=== PATIENT | male | born 1950 | race Caucasian/White ===

== ENCOUNTER 2017-09-10 17:09 | Emergency (ER) | payer BC ==
[2017-09-10] MEDS ORDERED: Lidocaine 1% w/Epinephrine 1:100K 20 ML VIAL ONE (18:27)
[2017-09-10] MEDS ORDERED: Lorazepam 2 MG/ML VIAL ONE (18:29)
[2017-09-10 18:47] LABS: #Basophils 0.1 thou/uL (0.0-0.2); #Eosinphils 0.1 thou/uL (0.0-0.7); #Lymphocytes 1.1 thou/uL (1.20-3.40); #Monocytes 0.7 thou/uL (0.11-0.59); #Neutrophils 5.3 thou/uL (1.40-6.50); %Basophils 0.7 % (0.0-1.0); %Eosinophils 0.7 % (0.0-10.0); %Lymphocytes 15.1 % (21.0-51.0); %Neutrophils 73.4 % (42.0-75.0); Mean Corpuscular Hemoglobin 33.5 pg (27.0-31.0); Mean Corpuscular Volume 95.8 fL (78.0-98.0); Mean Platelet Volume 6.9 fL (7.4-10.4); Platelet Count 158 thou/uL (130-400); RBC Distribution Width 11.4 % (11.5-14.5); Red Blood Cell (RBC) Count 4.76 mill/uL (4.70-6.10); White Blood Cell (WBC) Count 7.3 thou/uL (4.8-10.8)
[2017-09-10 19:10] LABS: CKMB 2.9 ng/mL (0-6.6); Troponin I Less than 0.010 ng/mL (< 0.028)
[2017-09-10 19:11] LABS: ALT (SGPT) 19 U/L (8-55); AST (SGOT) 21 U/L (5-34); Albumin 3.7 g/dL (3.4-4.8); Alkaline Phosphatase 67 U/L (40-150); Anion Gap 12 mmol/L (10-20); BUN (Urea Nitrogen) 17 mg/dL (8.4-25.7); Bilirubin, Total 0.6 mg/dL (0.2-1.2); CK (CPK) 133 U/L (30-200); Calc. Creatinine Clearance 0 mL/min (70-130); Calcium 8.8 mg/dL (7.8-10.44); Carbon Dioxide 24 mmol/L (23-31); Chloride 105 mmol/L (98-107); Estimated GFR-MDRD Greater than 90; Globulin 2.9 g/dL (2.4-3.5); Glucose 112 mg/dL (80-115); Potassium 4.3 mmol/L (3.5-5.1); Protein, Total 6.6 g/dL (5.8-8.1); Sodium 137 mmol/L (136-145)
== END 2017-09-10 20:25 | disposition home or self-care (01) ==
LOC: ERS 17:09
DX: S51.812A Laceration without foreign body of left forearm, initial encounter (principal); R29.898 Other symptoms and signs involving the musculoskeletal system; M10.9 Gout, unspecified; I48.91 Unspecified atrial fibrillation; I10 Essential (primary) hypertension; F17.220 Nicotine dependence, chewing tobacco, uncomplicated; Z79.899 Other long term (current) drug therapy; Z79.82 Long term (current) use of aspirin; W23.0XXA Caught, crushed, jammed, or pinched between moving objects, initial encounter
CPT/HCPCS: 12005; 36415; 82550; 82553; 84484; 96374; J2001; J2060

== ENCOUNTER 2017-09-13 15:11 | Observation (INO) | payer BC ==
[2017-09-12 10:48] VITALS: BMI 32.1
[2017-09-13] MEDS ORDERED: Ondansetron HCl/PF 4 MG/2 ML Vial ONE (16:02)
[2017-09-13] MEDS ORDERED: Lidocaine 1% PF 5 ML VIAL ONE (16:02)
[2017-09-13] MEDS ORDERED: PROPOFOL 200 MG/20 ML VIAL ONE (16:02)
[2017-09-13] MEDS ORDERED: Ketorolac Tromethamine 30 MG/ML VIAL ONE (16:02)
--- NOTE | 2017-09-13 16:12 | RAD ---
TWO VIEWS OF THE CHEST: 09/13/17 COMPARISON: 01/20/08. HISTORY: Preoperative radiograph prior to going to the operating room. FINDINGS: Two views of the chest show normal sized cardiomediastinal silhouette. There is no evidence of consol idation, mass, or pleural effusion. The bones are unremarkable. IMPRESSION: No evidence of acute cardiopulmonary disease. POS: [facility]
[2017-09-13] MEDS ORDERED: Vancomycin HCl 1.5 GM in Sodium Chloride 0.9% 250 ML 300 ML IVPB SCH (16:15)
[2017-09-13] MEDS ORDERED: CEFAZOLIN/Water 2 GM/20 ML SYRINGE SLOW IVP SCH (16:15)
[2017-09-13] MEDS ORDERED: Bacitracin Zinc Ointment 30 gm TUBE ONE (19:07)
[2017-09-13] MEDS ORDERED: Bupivacaine PF 0.5% 30 ML VIAL ONE (19:07)
[2017-09-13] MEDS ORDERED: Sodium Chloride 0.9% 30 ML ONE (19:07)
[2017-09-13] MEDS ORDERED: Fentanyl 100 MCG/2 ML VIAL ONE ×2 (19:41→20:38)
[2017-09-13] MEDS ORDERED: Sodium Chloride 0.9% 10 ML ONE (20:38)
[2017-09-13] MEDS ORDERED: Promethazine HCl 25 MG/ML VIAL SLOW IVP PRN (23:04)
[2017-09-13] MEDS ORDERED: Ondansetron HCl/PF 4 MG/2 ML Vial IVP PRN (23:04)
[2017-09-13] MEDS ORDERED: Promethazine HCl 25 MG/ML VIAL IM PRN (23:04)
[2017-09-13] MEDS ORDERED: Acetaminophen 325 MG TAB PO PRN (23:34)
[2017-09-13] MEDS ORDERED: HYDROcodone/Acetaminophen 10/325 mg Tablet PO PRN (23:34)
[2017-09-13] MEDS ORDERED: Morphine 4 MG/ML Carpuject IVP PRN (23:34)
[2017-09-13] MEDS ORDERED: traMADol HCl 50 MG TAB PO PRN (23:34)
[2017-09-13] MEDS ORDERED: Ondansetron HCl/PF 4 MG/2 ML Vial IV PRN (23:34)
[2017-09-13] MEDS ORDERED: Communication Order-Pharmacy FS SCH (23:45)
[2017-09-13] MEDS ORDERED: TETANUS AND DIPHTHERIA TOX/PF 0.5 ML DISP.SYRIN IM SCH (23:45)
[2017-09-14] MEDS: Ketorolac Tromethamine 30 MG/ML VIAL IVP SCH ×3 (00:23→11:59)
[2017-09-14] MEDS ORDERED: Vancomycin HCl 1.5 GM in Sodium Chloride 0.9% 250 ML 300 ML IVPB SCH (07:30)
[2017-09-14] MEDS ORDERED: Aspirin 81 mg Enteric Coated Tablet PO SCH (09:00)
[2017-09-14] MEDS ORDERED: Vancomycin HCl 1 GM in Premix Bag 1 BAG IVPB SCH (09:00)
[2017-09-14 11:52] VITALS: TEMP 98.4
[2017-09-14 15:26] VITALS: BP 160/90
--- NOTE | 2017-09-16 09:24 | DIS ---
DATE OF ADMISSION: 09/13/2017 DATE OF DISCHARGE: 09/14/2017 ADMISSION DIAGNOSES: Complex wound in left antecubital fossa with radial nerve laceration. FINDINGS: 1. Wound with minimal contamination. 2. Radial nerve repair just across the bifurcation from ____ posterior interosseous nerve and extens or branch. PROCEDURES WHILE IN HOSPITAL: [place] [address] [place]. 2: Microscopic radial nerve repair, mixed fascicular and epineural technique. HOSPITAL COURSE: The patient was admitted, had a clinical absence of radial nerve function with some borderline, possible brachioradialis seen. He then had wound, and inspection, I could not see the r adial nerve, though wound deep enough to see biceps tendon. For this reason, we felt radial nerve wa s injured and should be repaired. He was admitted, underwent the operation as described above to include microscopic repair of radial n erve, mixed epineural technique. Application of Integra, neural wrap to protect this. It was splinted appropriately to add plus 90 degrees elbow flexion to relax tension on the nerve, and the wo und was closed because of minimally contaminated and made into a clean environment with the debrideme nt. The patient had no fevers, and 24 hours after surgical repair for discharge without any neurologic de terioration. Vascular was intact. DISCHARGE DIAGNOSES: Complex wound in left antecubital fossa with radial nerve laceration. RECOMMENDATIONS: The patient will wear the splint, come to clinic in approximately 10 days for a lexi ssing change. He will be placed on Alborn for pain, Bactrim for antibiotics, and follow up with us at that time.
--- NOTE | 2017-09-16 10:06 | OP ---
DATE OF PROCEDURE: 09/14/2017 PREOPERATIVE DIAGNOSES: 1. Wound complex, left antecubital fossa and lateral antecubital fossa and lateral distal arm. 2. Radial nerve palsy on presentation, pulse rate of less defined. A complete radial nerve lacerati on just proximal to its terminal bifurcation at the posterior interosseous nerve and primary sensory branch with minimal gout formation. PROCEDURES PERFORMED: 1. Debridement of wound depth down to, but not including bone 0.43 depth, I used the following techn iques, A. Incisional technique. B. Instruments: Lindon blade, tenotomy scissor, curette, pickups, and Pulsavac 3 liters with antibi otics. C: We found no gross infection. We did find some muscle that was denuded especially some of the sup erior aspect cystoscope radialis brevis and longus, more superficial and some of the brachialis muscl e. There was indeed of no gross infection or hematoma. 2. Microscopic repair, radial nerve, mixed group fascicle and epineural technique. 3. Application of Integra, neural wrap. INDICATION: The patient had a laceration approximately 5-6 days prior to evaluation. Wound was irri gated and loosely closed emerging from the floor because he had complete radial nerve palsy and he jordan d pictures in the office, which showed a deep laceration, but could not see a visible radial nerves s o we felt radial nerve must not be in continuity by clinical and photographic evidence. SURGEON: Dr. Vincenzo Smiley ANESTHESIA: [place] Anesthesia, general, LMA technique, augmented by 30 mL 0.5% Marcaine, winnie-inci sional block, 15 before incision and 15 after. TOURNIQUET TIME: 220 minutes. DESCRIPTION OF PROCEDURE: After successful general LMA technique, the limb was prepped and draped. The patient then had the sterile tourniquet applied. After timeout, the limb was exsanguinated, tour niquet inflated to 250 mmHg pressure. His transverse laceration with a lateral distal was exte nded 7 cm proximal along the anterior humeral line and immediately after going through the skin and c reating a flap, we can see we had loss of muscle mass of the brachialis and next to the biceps with t he biceps tendon intact, deep to that, we could see the radial nerve. It was lacerated completely an d had already had a bulbous type hematoma on it. We then debrided some denuded muscle primarily from a longitudinal loss of extensor carpi radialis brevis and longus, did not cross the injury, did not cross into the median nerve territory and he had a normal median nerve sensory and ulnar nerve exam p rior to this procedure. The patient then had the wound irrigated after the debridement using the technique listed above with 3 liters of normal saline and Pulsavac pressure with antibiotics inside (bacitracin). We then began to dissect out the posterior interosseous nerve to free it for proximal migration and then dissected the proximal stump for distal migration, so that with the elbow at 30 degrees, the two medians overla pped. We then resected the very end of the hematoma still located under microscope after bringing th e microscope on to the field sterilely. Then, we have completed a field with a blue background, it began a mixed repair with a group fascicul ar repair primarily and the motor and sensory branch primarily with epineural only. After the fascic les were repaired then we did an epineural circumferential repair and put a neural wrap, 10 mm wide a nd 2 cm long over the repaired that was done. The neural wrap was tightly applied and was prepared b y Integra. We deflated the tourniquet, obtained hemostasis. We closed the wound in multiple layers using #1 Vicryl to repair some muscle deep, a running 3-0 Monocryl for subcutaneous closure and the s kin reapproximated with 3-0 nylon interrupted simple pattern. We injected remaining 15 mL over the T -shaped incision, the elbow was kept at 90 degrees of flexion during entire repair with no tension on the wound until we reached the last 20 degrees of extension, but we avoided this afterwards. The patient left the room with a bulky dressing inside, the limb at 100 degrees of flexion, the digit s at 20 degrees metacarpophalangeal joint flexion and 20 degrees wrist dorsiflexion with the thumb sl ightly abducted. Splint was well applied. It was a long arm splint. The patient left the operating room without evidence of anesthetic complication.
--- NOTE | 2017-09-23 10:01 | PQF ---
[facility] POST DISCHARGE CLINICAL DOCUMENTATION IMPROVEMENT CLARIFICATION FORM Todays Date: 09/20/2017 Patients Name KAYCEE BROUSSARD Admit Date 09/13/17 Disch Date 09/14/17 Kiln Operator Helper Name Randy Chiang Email: [email or web address] Cell: [phone] Present Clinical Indicators - Signs / Symptoms Results and Location in Medical Record [ ] Documentation of: [ ] [ ] Documentation of: [ ] [ ] Documentation of: [ ] [ ] Documentation of: [ ] [ ] Risks [ ] [ ] [ ] Treatment [ ] Laceration repair of lateral distal arm [ ] [ ] Vincenzo Carpio MD The documentation in this patients record requires clarification to ensure coding compliance and accuracy. Check the appropriate box and include in your discharge summary. [ ] [ ] [ ] [ ] Please check this box if this does not apply to this patient [ ] Unable to determine [ ] Other diagnosis: Review the following information and exercise your independent professional judgment in responding to the clarification. Based upon the clinical findings, risk factors, and treatment, please clarify if you are treating one of the above probable or suspected diagnoses. Physician Signature: Date Time MTDD
== END 2017-09-14 16:14 | disposition home or self-care (01) ==
LOC: SDC 15:11 → SURG A 23:34
PROVIDERS: ADMIT Orthopaedic Surgery Hand Surgery; ATTEND Orthopaedic Surgery Hand Surgery
PROC: 01Q60ZZ Repair Radial Nerve, Open Approach (ICD-10-PCS; principal; 2017-09-13)
DX: S54.22XA Injury of radial nerve at forearm level, left arm, initial encounter (principal); S51.002A Unspecified open wound of left elbow, initial encounter; S56.922A Laceration of unspecified muscles, fascia and tendons at forearm level, left arm, initial encounter; Z79.899 Other long term (current) drug therapy; Z79.82 Long term (current) use of aspirin
CPT/HCPCS: 71046; 93005; 93010; 96374; 96376; A4216; G0378; J1885; J2001; J2405; J2704; J3010; J3370; J3490; J7050; S0020

== ENCOUNTER 2018-07-10 05:51 | Inpatient (IN) | payer BC, MEDICARE ==
[2018-07-10] MEDS ORDERED: Sodium Chloride 0.9% 1,000 ML IV SCH (06:00)
[2018-07-10] MEDS ORDERED: Ondansetron PF 4 MG/2 ML Vial IVP PRN ×2 (06:00→09:20)
[2018-07-10] MEDS ORDERED: Ondansetron ODT 4 MG TAB SL PRN (06:00)
[2018-07-10 06:24] LABS: #Basophils 0.1 thou/uL (0.0-0.2); #Lymphocytes 1.7 thou/uL (1.20-3.40); #Monocytes 0.9 thou/uL (0.11-0.59); #Neutrophils 7.2 thou/uL (1.40-6.50); %Basophils 0.6 % (0.0-1.0); %Eosinophils 0.3 % (0.0-10.0); %Lymphocytes 17.1 % (21.0-51.0); %Monocytes 8.6 % (0.0-10.0); %Neutrophils 73.4 % (42.0-75.0); Hemoglobin 8.6 g/dL (14.0-18.0); Mean Corpuscular HGB CONC 33.6 g/dL (32.0-36.0); Mean Corpuscular Hemoglobin 32.5 pg (27.0-31.0); Mean Corpuscular Volume 96.5 fL (78.0-98.0); Mean Platelet Volume 7.8 fL (7.4-10.4); Platelet Count 190 thou/uL (130-400); Red Blood Cell (RBC) Count 2.64 mill/uL (4.70-6.10); White Blood Cell (WBC) Count 9.8 thou/uL (4.8-10.8)
[2018-07-10] MEDS ORDERED: Pantoprazole 40 MG VIAL ONE (06:26)
[2018-07-10 06:30] LABS: INR-International Normal Ratio 1.1; PTT 24.2 SEC (22.9-36.1); Prothrombin Time 14.4 SEC (12.0-14.7)
[2018-07-10 06:36] LABS: ALT (SGPT) 13 U/L (8-55); AST (SGOT) 15 U/L (5-34); Albumin 3.3 g/dL (3.4-4.8); Alkaline Phosphatase 48 U/L (40-150); Anion Gap 14 mmol/L (10-20); BUN (Urea Nitrogen) 20 mg/dL (8.4-25.7); Bilirubin, Total 0.5 mg/dL (0.2-1.2); Calc. Creatinine Clearance 0 mL/min (70-130); Calcium 8.2 mg/dL (7.8-10.44); Carbon Dioxide 24 mmol/L (23-31); Chloride 106 mmol/L (98-107); Estimated GFR-MDRD 65; Globulin 2.1 g/dL (2.4-3.5); Glucose 199 mg/dL (80-115); Protein, Total 5.4 g/dL (5.8-8.1); Sodium 140 mmol/L (136-145)
[2018-07-10] MEDS ORDERED: Pantoprazole 80 MG, Admixture Fee 1 EACH in Sodium Chloride 0.9% 100 ML IVPB SCH (06:45)
[2018-07-10] MEDS ORDERED: Sodium Chloride 0.65% Nasal 44 ML BOT EA NARE PRN (09:20)
[2018-07-10] MEDS ORDERED: Eucerin (Mineral Oil/Petrolatum,White) 30 gm Jar TOP PRN (09:20)
[2018-07-10] MEDS ORDERED: Artificial Tears 18 DROP/0.9 ML EA EYE PRN (09:20)
[2018-07-10 09:24] VITALS: BMI 33.8
--- NOTE | 2018-07-10 10:30 | HP ---
PRIMARY CARE PHYSICIAN: Abran Boone MD. REASON FOR ADMISSION: GI bleed, anemia due to acute blood loss, hypotension. HISTORY OF PRESENT ILLNESS: A 67-year-old male, who had colonoscopy performed [address] Dejesus and large polyp was removed and subsequently as per . Case pathology report came back as adenomatous polyp. Postprocedure, the patient was doing okay, but on Saturday evening he noticed that he was having diarrhea and when he was wiping, he was noticing some blood. Similarly on Saturday, he was having diarrhea and on wi he noticed blood and he took some Imodium and subsequently he did not have any further bleeding. Last night, the patient was having diarrhea with blood and it was black tarry stool and he was feeling dizziness, lightheadedness. He was feeling about to pass out and that is why the patient came back to emergency room for evaluation. At home, the patient's blood pressure was 80 systolic. When he came to emergency room, his blood pressure was 90 systolic and he was tachycardic. He was feeling weak, dizzy, lightheaded, and diaphoretic. He did not have any chest pain, syncope, loss of consciousness. He denies any fever, chills, or constipation. He denies any UTI symptoms. He denies any a hematemesis or epigastric abdominal pain. He denies any NSAID abuse. He never had this type of bleeding before. REVIEW OF SYSTEM: CONSTITUTIONAL: Negative for weight loss or gain, ability to conduct usual activities. SKIN: Negative for rash, itching. EYES: Negative for double vision, pain. ENT/MOUTH: Negative for nose bleeding, neck stiffness, pain, tenderness. CARDIOVASCULAR: Negative for palpitations, dyspnea on exertion, orthopnea. RESPIRATORY: Negative for shortness of breath, wheezing, cough, hemoptysis, fever or night sweats. GASTROINTESTINAL: Negative for poor appetite, abdominal pain, heartburn, nausea, vomiting, constipation, or diarrhea. GENITOURINARY: Negative for urgency, frequency, dysuria, nocturia. MUSCULOSKELETAL: Negative for pain, swelling. NEUROLOGIC/PSYCHIATRIC: Negative for anxiety, depression. ALLERGY/IMMUNOLOGIC: Negative for skin rash, bleeding tendency. Please see my HPI for pertinent positive and negative. All other review of systems reviewed and negative except as mentioned in HPI. PAST MEDICAL HISTORY: Gout, paroxysmal atrial fibrillation, hypertension, dyslipidemia, obesity, recent diagnosis of adenomatous colon polyp which was removed. PAST SURGICAL HISTORY: Cataract surgery, prostate surgery, left testicle surgery, colonoscopy with polypectomy. PAST PSYCHIATRIC HISTORY: Reviewed and negative. SOCIAL HISTORY: The patient is , lives at home with family. He drinks alcohol socially. He chews tobacco. He denies any other illicit drug abuse. FAMILY HISTORY: No family history of coronary artery disease, stroke, or cancer. ALLERGIES: NO KNOWN DRUG ALLERGIES. CURRENT HOME MEDICATIONS: 1. Lisinopril 20 mg daily. 2. Cardizem CD 240 mg p.o. daily. 3. Allopurinol 300 mg p.o. daily. 4. Aspirin 81 mg p.o. daily. 5. Pravastatin 40 mg p.o. at bedtime. EMERGENCY ROOM COURSE: The patient is given Protonix drip. The patient is getting 1 unit of blood transfusion. PHYSICAL EXAMINATION: VITAL SIGNS: On arrival, blood pressure 90/58, pulse 112, respiratory rate 18, temperature 98.9, saturation 96% on room air. Weight 119.7 kg. GENERAL: The patient is currently alert, awake, no obvious or acute distress. HEENT: Head; normocephalic and atraumatic. Eyes; pupils round, reactive to light. Extraocular muscle intact. Conjunctiva pale. ENT; oropharynx within normal limits. Moist mucous membranes. No oral lesion. No pharyngeal erythema. No exudate. NECK: Supple. No JVD. No thyromegaly. No carotid bruit. No jugular venous distention. LUNGS: Clear to auscultation without any rhonchi or rales. CARDIAC: S1 and S2 regular. No systolic murmur noted. No gallop. No rub. ABDOMEN: Obesity present. Bowel sounds present. Nontender. Nondistended. No organomegaly. No mass. No suprapubic tenderness. BACK: Unremarkable. No CVA tenderness. Upper extremities, passive movement of all joints are normal. RECTAL: Done in the emergency room showing blood in the rectal vault. NEUROLOGIC: Nonfocal examination. He moves all 4 limbs. SKIN: No skin or rash. HEMATOLOGICAL: No lymphadenopathy. PSYCHIATRIC: Normal affect. SIGNIFICANT LABORATORY DATA: CBC; WBC 9.8, hemoglobin 8.6, platelet 190. INR 1.1. BMP; sodium 140, potassium 4.0, chloride 106, carbon dioxide 24, BUN 20, creatinine 1.13, glucose 199, calcium 8.2, lactic acid 5.4. LFT; AST 15, ALT 13, alkaline phosphatase 48, albumin 3.3. Colon biopsy report came back as a tubular adenoma. ASSESSMENT/PLAN: 1. Acute gastrointestinal bleed. 2. Anemia due to acute blood loss. 3. Hypotension due to GI bleed. 4. Lactic acidosis due to hypotension. 5. Paroxysmal atrial fibrillation. 6. Hypertension, but currently low blood pressure. 7. Gout. 8. Dyslipidemia. PLAN: The patient will be admitted to ICU for close monitoring. Mathematics Faculty Member will be consulted for further evaluation. Pulmonary and Critical Care group will be consulted for critical care illness. The patient will continue with IV fluid. We will transfuse with blood to keep hemoglobin around 8. We will monitor vitals closely. We will also continue Protonix drip. Further decision will defer to ed teacher team. I am suspecting that this patient might have post polypectomy ulcer and bleeding from that area, but other etiology needs to be excluded. We will try to do nuclear medicine scan to localize the site of bleeding and based on that result will decide the next step. We will keep him n.p.o. for now. We will restart his home medication when hemodynamics improves. DVT prophylaxis, SCD boots. GI prophylaxis, the patient is on Protonix drip. CODE STATUS: The patient is full code. The patient's is surrogate decision maker. DISPOSITION PLAN: Based on clinical course. We are expecting the patient's stay in hospital more than 2 midnights. Plan of care discussed with the patient and family member at bedside. Job ID: [id number]
--- NOTE | 2018-07-10 12:32 | CON ---
DATE OF CONSULTATION: 07/10/2018 REASON FOR CONSULTATION: GI bleeding. HISTORY OF PRESENT ILLNESS: Fam Soler is a 67-year-old man, patient of my GI colleague, Dr. Curt Dejesus. Mr. Soler has no chronic gastrointestinal symptoms. He recently saw Dr. Dejesus for surveillance colonoscopy on 07/04/2018, due to a personal history of colon polyps. The colonoscopy demonstrated diverticulosis throughout the colon, internal hemorrhoids, and also a large flat adenoma in the cecum, which measured 4 cm. This was too large to be endoscopically resected. Dr. Dejesus did obtain biopsies. The biopsies came back as fragments of tubular adenoma. The patient had been referred to a surgeon and was scheduled to see Dr. Weathers. However, over the past 6 days since that time, the patient states that he has had new blood in his stool. This started out fairly slowly, but has gotten progressively worse over the past few days. He describes his stool as dark and tarry with red blood smears on the sides. This is all new for him just since the colonoscopy. He does not have any abdominal pain at all, but he had been getting progressively dizzy and lightheaded. Upon ER presentation early this morning, he was found to be relatively hypotensive with systolic blood pressures in the 90s and initially tachycardic up to 120. Lactic acid was elevated to 5.4 and hemoglobin was 8.6, down from baseline of 13 last year. He is now getting 2 units of RBC transfusion. He is hemodynamically stable. Tachycardia has improved. He is no longer feeling as lightheaded. He has no other symptoms. His last bowel movement was this morning and again appeared jet black with reddish smears. REVIEW OF SYSTEMS: Full review of systems including constitutional; head, eyes, ears, nose, and throat; GI; ; cardiovascular; respiratory; musculoskeletal; and neurologic systems are negative except as noted in the HPI. PAST MEDICAL HISTORY: Gout; atrial fibrillation; hypertension; prostate cancer, status post prostatectomy; history of colon polyps in 2012; large cecal adenoma biopsied on colonoscopy on 07/04/2018; colonic diverticulosis; and internal hemorrhoids. FAMILY HISTORY: Noncontributory. SOCIAL HISTORY: The patient chews tobacco. He drinks beer every day up to 10 drinks in a day. No drug use. ALLERGIES: NO KNOWN DRUG ALLERGIES. OUTPATIENT MEDICATIONS: 1. Lisinopril. 2. Diltiazem. 3. Allopurinol. 4. Pravastatin. 5. Aspirin 81 mg daily. PHYSICAL EXAMINATION: VITAL SIGNS: Temperature 99.1, pulse 103, blood pressure 109/61, oxygen saturation 99% on room air. GENERAL: A 67-year-old man, lying in bed comfortably, in no acute distress. SKIN: He is pale. No jaundice. No rashes were palpable. EYES: No scleral icterus. Extraocular movements intact. ENT: Mucous membranes are moist. No oral lesions. LYMPH: No submandibular or supraclavicular lymphadenopathy. THYROID: Nontender to palpation. HEART: Regular rate and rhythm, with borderline tachycardia. LUNGS: Clear to auscultation bilaterally. ABDOMEN: Bowel sounds present. Soft and nontender to palpation throughout. EXTREMITIES: No peripheral edema. VESSELS: Radial pulses 2+ bilaterally. NEURO: Cranial nerves II through XII intact bilaterally. No focal deficits. LABORATORY STUDIES: Hemoglobin 8.6, MCV 96.5, WBC 9.8, and platelets 190. BUN 20, creatinine 1.13, and glucose 199. Lactic acid 5.4. Total bilirubin 0.5, alkaline phosphatase 48, AST 15, ALT 13, and albumin 3.3. INR 1.1. ASSESSMENT: 1. Gastrointestinal bleeding, acute over the past 6 days since colonoscopy. 2. Acute blood loss anemia. 3. Large cecal adenoma, recently biopsied on 07/04/2018. PLAN: The patient was having no bleeding prior to colonoscopy 6 days ago. He did not have polypectomy of this large cecal polyp, but rather just biopsies. It is a bit unusual to bleed so much just from biopsy sites, but this is almost certainly the etiology of his current bleeding. Presentation is not really consistent with upper gastrointestinal bleed. I suppose this could represent new diverticular bleeding, but this would be highly coincidental. The patient had already been scheduled to see Dr. Weathers on an outpatient basis for surgical evaluation for resection of this cecal polyp. Given this acute presentation, I think he should go ahead and have surgical evaluation while here. In the meantime, we will go ahead and obtain a tagged RBC scan to try to localize the bleeding and confirm bleeding from the location of the cecum. No plan for any endoscopy at this time, unless requested by Surgical Team. Otherwise, I agree with blood transfusion and supportive care. Thank you for the consultation. GI will follow along. Please call anytime with questions or concerns. Job ID: [id number]
--- NOTE | 2018-07-10 12:37 | NM ---
Exam: Chest one view HISTORY:Emergency exam, hyperglycemia, dizziness Comparison: 01/25/2015 FINDINGS: Lungs: Mild interstitial prominence, perihilar regions, bilaterally Cardiac silhouette: Normal size Pulmonary vessels: Mild central prominence Pleural Spaces: No significant effusion Pneumothorax: None Metallic clips overlie the right chest. Osseous abnormalities: None of acuity. IMPRESSION: Bilateral perihilar interstitial prominence with mild enlargement of central pulmonary va sculature. This may represent fluid overload. Correlate clinically.
[2018-07-10 13:26] LABS: Base Excess (BEa) -3.4 mEq/L (-2.0 to +3.0); CO2 Tension 30.3 mmHg (35.0-45.0); Calcium, Ionized 1.08 mmol/L (1.12-1.30); Carboxyhemoglobin (COHb) 0.9 gm% (0.0-3.0); Hemoglobin (Hb) 9.9 g/dL (14.0-18.0); O2 Tension (PaO2) 69.7 mmHg (> 80.0); Potassium - ABG Lab 3.74 mmol/L (3.70-5.30); Puncture Site RR; pH, Arterial 7.44 (7.35-7.45)
[2018-07-10 13:27] LABS: ALV-art Gradient 42.155 (0-20)
--- NOTE | 2018-07-10 13:32 | NM ---
NUCLEAR MEDICINE BLEEDING SCAN: CLINICAL HISTORY: Recent cecal colonic polyp resection with GI bleeding. RADIOPHARMACEUTICAL: 27.1 mCi tagged RBCs (technetium-99m). FINDINGS: There is appropriate physiologic distribution of radiotracer. There is no definitive evidence for abn ormal scintigraphic activity localizing to the confines of the cecum or the right hemicolon. At appro ximately 37 minutes of imaging, there is activity which localizes over the low midline pelvis and ext ends to the left of midline, which favors activity within the urinary bladder. This does not localize to the expected confines of the cecum, and therefore this is not favored to reflect activity within the colon. IMPRESSION: 1. No definite scintigraphic evidence of active GI bleed. 2. There is activity, delayed, which overlies the low midline pelvis and does not conform to the exp ected confines of bowel content, favoring activity within excreted radiopharmaceutical within the uri nary bladder. If there are persistent clinical concerns, or evidence of active rebleeding, follow-up imaging may be obtained as necessary. These findings were conveyed to ICU physician, Honorio Dorman, at time of interpretation. CODE CR. POS: [facility]
[2018-07-10] MEDS: Sodium Chloride 0.9% 1,000 ML IV SCH (13:34)
[2018-07-10 13:56] LABS: Hemoglobin 9.4 g/dL (14.0-18.0)
[2018-07-10 14:03] LABS: Lactic Acid 2.7 mmol/L (0.5-2.2)
[2018-07-10 17:59] LABS: Hemoglobin 8.8 g/dL (14.0-18.0)
[2018-07-10] MEDS ORDERED: GoLYTELY 4,000 ml Bottle PO SCH (18:00)
[2018-07-10] MEDS: Pantoprazole 80 MG in Sodium Chloride 0.9% 100 ML IVP SCH (18:34)
--- NOTE | 2018-07-10 18:39 | CON ---
DATE OF CONSULTATION: 07/10/2018 CHIEF COMPLAINT: Lower GI bleed. HISTORY OF PRESENT ILLNESS: This is a 67-year-old male, who presents after having had a right large sessile polyp, biopsied a week ago on Saturday by Dr. Dejesus. He has had bloody stools since then, became more frequent and larger in the last 24 hours, admitted to the ICU with a lower GI bleed. He has been hemodynamically stable. His hemoglobin was 8.6 this morning. He was given 2 units of blood. He remains hemodynamically stable. He was also noted to have diffuse diverticulosis on the colonoscopy. I have been asked to see him for potential surgical management of this bleeding and he will ultimately need elective right colectomy for this unresectable polyp. He denies abdominal pain. He has had a couple of small bloody bowel movements today. PAST MEDICAL HISTORY: Includes paroxysmal atrial fibrillation, gout, hypertension, dyslipidemia, and obesity. SURGICAL HISTORY: Cataract; prostatectomy, robotic; colonoscopy. SOCIAL HISTORY: , lives at home. He drinks socially. Chews tobacco. No smoking. ALLERGIES: NO KNOWN DRUG ALLERGIES. FAMILY HISTORY: No family history of GI malignancy or anesthetic related complication. MEDICATIONS: 1. Lisinopril. 2. Cardizem. 3. Allopurinol. 4. Aspirin. 5. Pravastatin. REVIEW OF SYSTEMS: A 10-system review of systems was otherwise negative unless described above. PHYSICAL EXAMINATION: VITAL SIGNS: His pulse is 86. His blood pressure is 128/69, respirations 15, and O2 saturations 99% on room air. NECK: No lymphadenopathy. CHEST: Clear. HEART: Regular rate and rhythm. ABDOMEN: Soft, nontender, nondistended. He has well-healed laparoscopic incisions without hernia. No inguinal hernias. EXTREMITIES: No ischemia or edema to extremities. LABORATORY DATA: Hemoglobin was 8.6 this morning, 9.4 this afternoon, and 8.8 this afternoon. He had 2 units of blood today. His platelet count is 190. His coags are normal. ASSESSMENT: 1. Unresectable adenoma in right colon, status post biopsy, ultimately needs definitive resection. 2. Lower gastrointestinal bleed, slow but persistent. Hemodynamically stable. Already had 2 units of blood. GI nuclear bleeding scan is negative. PLAN: Discussed with Dr. Lambert. Most likely, he is bleeding from his polypectomy site; however, with the presence of diffuse diverticulosis, he could have a diverticular bleed as well. Given that he is hemodynamically stable, may attempt to prep and do upper and lower endoscopy just to rule out other sources of bleeding prior to his elective colon resection. We will follow with you. Job ID: [id number]
[2018-07-10 21:37] LABS: Hemoglobin 8.8 g/dL (14.0-18.0)
[2018-07-11 01:14] LABS: Hemoglobin 7.7 g/dL (14.0-18.0)
[2018-07-11] MEDS: Sodium Chloride 0.9% 1,000 ML IV SCH ×3 (01:21→21:19)
[2018-07-11] MEDS: Pantoprazole 80 MG in Sodium Chloride 0.9% 100 ML IVP SCH ×2 (01:21→12:51)
[2018-07-11 05:21] LABS: #Basophils 0.1 thou/uL (0.0-0.2); #Eosinphils 0.1 thou/uL (0.0-0.7); #Lymphocytes 1.6 thou/uL (1.20-3.40); #Monocytes 0.8 thou/uL (0.11-0.59); #Neutrophils 4.4 thou/uL (1.40-6.50); %Basophils 0.9 % (0.0-1.0); %Eosinophils 0.8 % (0.0-10.0); %Lymphocytes 23.5 % (21.0-51.0); %Monocytes 11.2 % (0.0-10.0); %Neutrophils 63.7 % (42.0-75.0); Hemoglobin 7.3 g/dL (14.0-18.0); Mean Corpuscular HGB CONC 34.4 g/dL (32.0-36.0); Mean Corpuscular Hemoglobin 32.9 pg (27.0-31.0); Mean Corpuscular Volume 95.5 fL (78.0-98.0); Platelet Count 133 thou/uL (130-400); RBC Distribution Width 12.7 % (11.5-14.5); Red Blood Cell (RBC) Count 2.23 mill/uL (4.70-6.10)
[2018-07-11 05:34] LABS: ALT (SGPT) 11 U/L (8-55); AST (SGOT) 16 U/L (5-34); Albumin 2.8 g/dL (3.4-4.8); Alkaline Phosphatase 41 U/L (40-150); Anion Gap 9 mmol/L (10-20); BUN (Urea Nitrogen) 19 mg/dL (8.4-25.7); Bilirubin, Total 0.6 mg/dL (0.2-1.2); Calc. Creatinine Clearance 130 mL/min (70-130); Calcium 7.3 mg/dL (7.8-10.44); Carbon Dioxide 28 mmol/L (23-31); Chloride 107 mmol/L (98-107); Estimated GFR-MDRD 83; Globulin 1.8 g/dL (2.4-3.5); Glucose 133 mg/dL (80-115); Potassium 3.4 mmol/L (3.5-5.1); Protein, Total 4.6 g/dL (5.8-8.1); Sodium 141 mmol/L (136-145)
[2018-07-11] MEDS ORDERED: Diabetic Tussin 200 MG/10 ML UDCUP PO PRN (09:19)
[2018-07-11] MEDS ORDERED: Loperamide HCl 2 MG CAP PO PRN (09:19)
[2018-07-11] MEDS ORDERED: HYDROcodone/Acetaminophen 5/325 mg Tablet PO PRN (09:19)
[2018-07-11] MEDS ORDERED: hydrALAZINE 20 MG/ML VIAL SLOW IVP PRN (09:19)
[2018-07-11] MEDS ORDERED: Cepastat Lozenges 1 LOZ PO PRN (09:19)
[2018-07-11] MEDS ORDERED: Calcium Carbonate 500 MG ChewTAB PO PRN (09:19)
[2018-07-11] MEDS ORDERED: Bisacodyl 10 MG SUPP PR PRN (09:19)
[2018-07-11] MEDS ORDERED: Ondansetron ODT 4 MG TAB PO PRN (09:19)
[2018-07-11] MEDS ORDERED: Acetaminophen 500 MG TAB PO PRN (09:19)
[2018-07-11] MEDS ORDERED: Zolpidem Tartrate 5 MG TAB PO PRN (09:19)
[2018-07-11] MEDS ORDERED: Senokot S 8.6-50 MG TAB PO PRN (09:19)
[2018-07-11 10:10] LABS: Iron Binding Capacity, Total 234 mcg/dL (261-462)
[2018-07-11 10:11] LABS: Iron 40 ug/dL (65-175)
--- NOTE | 2018-07-11 10:23 | PDOC.PN ---
- Subjective Encounter Start Date: 07/11/18 Encounter Start Time: 10:10 Patient seen and examined. No new complaints. No overnight events - Objective Resuscitation Status - Order Detail: 07/10/18 07:14 Resuscitation Status Routine Resuscitation Status: FULL: Full Resuscitation MAR Reviewed: Yes Vital Signs & Weight: Vital Signs (12 hours) Temp Pulse Ox 07/11/18 08:00 98 07/11/18 07:00 98.1 F 07/11/18 04:00 97.8 F 07/11/18 00:00 98.0 F Weight Weight 256 lb 6.362 oz Most Recent Monitor Data Heart Rate from ECG 76 NIBP 142/65 NIBP BP-Mean 77 Respiration from ECG 21 SpO2 98 I&O: 07/10/18 07/11/18 07/12/18 06:59 06:59 06:59 Intake Total 6198 0 Output Total 11 2 Balance 6187 -2 Result Diagrams: 07/11/18 04:36 07/11/18 04:36 EKG Reviewed by me: Yes (nsr) Phys Exam - Physical Examination Constitutional: NAD HEENT: PERRLA, moist MMs, sclera anicteric, oral pharynx no lesions Neck: no JVD, supple Respiratory: no wheezing, no rales, no rhonchi Cardiovascular: RRR, no significant murmur, no rub Gastrointestinal: soft, non-tender, no distention, positive bowel sounds Musculoskeletal: no edema, pulses present Neurological: non-focal, normal sensation Lymphatic: no nodes Psychiatric: normal affect, A&O x 3 Skin: no rash, normal turgor Dx/Plan (1) Adenomatous colon polyp Code(s): D12.6 - BENIGN NEOPLASM OF COLON, UNSPECIFIED Status: Acute (2) Anemia due to acute blood loss Code(s): D62 - ACUTE POSTHEMORRHAGIC ANEMIA Status: Acute (3) GI bleed Code(s): K92.2 - GASTROINTESTINAL HEMORRHAGE, UNSPECIFIED Status: Acute (4) Hypokalemia Code(s): E87.6 - HYPOKALEMIA Status: Acute (5) Hypotension Status: Acute (6) Dyslipidemia Code(s): E78.5 - HYPERLIPIDEMIA, UNSPECIFIED Status: Chronic (7) Hypertension Code(s): I10 - ESSENTIAL (PRIMARY) HYPERTENSION Status: Chronic (8) Obesity (BMI 30.0-34.9) Code(s): E66.9 - OBESITY, UNSPECIFIED Status: Chronic - Plan cont current plan of care, plan discussed w/ family * medication reviewed as below * symptomatic treatment * transfer to medical * continue protonix * today EGD * surgery on Saturday. Review of Systems - Review of Systems ENT: negative: Ear Pain, Ear Discharge, Nose Pain, Nose Discharge, Nose Congestion, Mouth Pain, Mouth Swelling, Throat Pain, Throat Swelling, Other Respiratory: negative: Cough, Dry, Shortness of Breath, Hemoptysis, SOB with Excertion, Pleuritic Pain, Sputum, Wheezing Cardiovascular: negative: chest pain, palpitations, orthopnea, paroxysmal nocturnal dyspnea, edema, light headedness, other Gastrointestinal: negative: Nausea, Vomiting, Abdominal Pain, Diarrhea, Constipation, Melena, Hematochezia, Other Genitourinary: negative: Dysuria, Frequency, Incontinence, Hematuria, Retention , Other Musculoskeletal: negative: Neck Pain, Shoulder Pain, Arm Pain, Back Pain, Hand Pain, Leg Pain, Foot Pain, Other Skin: negative: Rash, Lesions, Kay[place], Bruising, Other - Medications/Allergies Allergies/Adverse Reactions: Allergies Allergy/AdvReac Type Severity Reaction Status Date / Time No Known Allergies Allergy Verified 09/14/17 00:34 Medications: Current Medications Acetaminophen (Tylenol) 650 mg PO Q6H PRN PRN Reason: Mild Pain (1-3) Hydrocodone Bitart/Acetaminophen ([place] 5/325) 1 tab PO Q4H PRN PRN Reason: Moderate Pain (4-6) Allopurinol (Zyloprim) 300 mg PO QAM ELLEN Artificial Tears (Tears Naturale) 2 drop EA EYE PRN PRN PRN Reason: Dry Eyes Atorvastatin Calcium (Lipitor) 10 mg PO HS ELLEN Bisacodyl (Dulcolax) 10 mg NM DAILYPRN PRN PRN Reason: Constipation Calcium Carbonate (Tums) 1,000 mg PO Q4H PRN PRN Reason: Heartburn or Indigestion Diltiazem HCl (Cardizem Cd) 240 mg PO QAM ELLEN Guaifenesin (Robitussin Sf) 200 mg PO Q4H PRN PRN Reason: Cough Hydralazine HCl (Apresoline) 10 mg SLOW IVP Q4H PRN PRN Reason: SBP > 180 and HR < 70 Pantoprazole Sodium 80 mg/ (Sodium Chloride) 100 mls @ 10 mls/hr IVP INF [facility] Last Admin: 07/11/18 01:21 Dose: 100 mls Sodium Chloride (Normal Saline 0.9%) 1,000 mls @ 75 mls/hr IV .[id number] [facility] Last Admin: 07/11/18 01:21 Dose: 1,000 mls Lisinopril (Zestril) 20 mg PO QAM [facility] Loperamide HCl (Imodium) 2 mg PO PRN PRN PRN Reason: Diarrhea/Loose Stools Mineral Oil/White Petrolatum (Eucerin Cream) 0 gm TOP BIDPRN PRN PRN Reason: Dry Skin Ondansetron HCl (Zofran) 4 mg IVP Q6H PRN PRN Reason: Nausea/Vomiting Ondansetron HCl (Zofran Odt) 4 mg PO Q6H PRN PRN Reason: Nausea/Vomiting Senna/Docusate Sodium (Senokot S) 2 tab PO BID PRN PRN Reason: Constipation Sodium Chloride (Flush - Normal Saline) 10 ml IVF PRN PRN PRN Reason: Saline Flush Sodium Chloride ([place] Nasal [place] 0.65%) 0 ml EA NARE QIDPRN PRN PRN Reason: Nasal Congestion Throat Lozenges (Cepastat Lozenges) 1 ngoc PO Q2H PRN PRN Reason: Sore Throat Zolpidem Tartrate (Ambien) 5 mg PO HSPRN PRN PRN Reason: Insomnia
--- NOTE | 2018-07-11 10:43 | PRG ---
DATE OF SERVICE: 07/11/2018 SUBJECTIVE: Mr. Soler remains in the CCU, but is planning to go up to a regular room once his colonoscopy is completed today. OBJECTIVE: VITAL SIGNS: Temperature 98.1, pulse 76, and blood pressure 142/65. He is currently on a Protonix drip. HEENT: Unremarkable. NECK: No JVD. CHEST: Clear. CARDIAC: S1 and S2. Regular without murmur. ABDOMEN: Soft and nontender. EXTREMITIES: No edema. LABORATORY DATA: Sodium 141, potassium 3.4, chloride 107, CO2 of 28, BUN 19, creatinine 0.9, and glucose 133. White blood cell count 7, hematocrit 21.3, and platelet count 133. ASSESSMENT: 1. Lower gastrointestinal bleeding with stable H and H. 2. Stable cardiopulmonary status. PLAN: The patient is being transferred out to the floor. He is doing well from pulmonary and critical care standpoint. We have no further recommendations. Please re-call if further assistance needed. Job ID: [id number]
[2018-07-11] MEDS ORDERED: PROPOFOL 200 MG/20 ML VIAL ONE (16:28)
[2018-07-11] MEDS ORDERED: Ketamine 50 MG/ML (10ML VIAL) ONE (16:56)
[2018-07-11] MEDS ORDERED: Ondansetron HCl/PF 4 MG/2 ML Vial IVP PRN (18:14)
[2018-07-11] MEDS ORDERED: Promethazine HCl 25 MG/ML VIAL SLOW IVP PRN (18:14)
[2018-07-11] MEDS ORDERED: Promethazine HCl 25 MG/ML VIAL IM PRN (18:14)
--- NOTE | 2018-07-11 19:06 | OP ---
DATE OF PROCEDURE: 07/11/2018 BILLING SUPERVISOR SURGEON: None. PROCEDURES: 1. Esophagogastroduodenoscopy, diagnostic. 2. Colonoscopy, diagnostic. INDICATIONS: 1. Gastrointestinal bleeding. 2. Acute blood loss anemia. MEDICATIONS: See Anesthesia record. FINDINGS: After discussion of the risks, benefits, and alternatives of the procedure, informed consent was obtained and witnessed. Pre-endoscopic cardiopulmonary examination was satisfactory. Time-out was performed before sedation was achieved. Sedation was achieved with Anesthesia assistance in the endoscopy unit. A Pentax adult upper endoscope was placed into the oropharynx and passed through the cricopharyngeus under direct visualization. The esophageal mucosa appeared normal throughout with a normal-appearing Z-line. The endoscope was advanced into the stomach. Forward and retroflexed views of the entire gastric mucosa were obtained. The gastric mucosa appeared normal. The endoscope was advanced beyond the pylorus and into the duodenal bulb. The patient has a J-shaped stomach with extensive looping of the upper endoscope within the stomach, and the endoscope was unable to be advanced beyond the duodenal bulb. The duodenal bulb appeared normal, but I was unable to examine the second portion of the duodenum. The upper endoscope was completely withdrawn, and the patient was repositioned. Digital rectal exam was performed, which was unremarkable. A Pentax adult colonoscope was inserted into the anus and passed forward in the usual fashion. The patient has a very redundant colon. There was extensive looping of the scope. Despite the patient's repositioning and manual pressure, I was unable to get to the cecal base. I was able to visualize the vast majority of the colon including the ascending colon just beyond the hepatic flexure, but the cecal base was not reached. The colonoscope was slowly withdrawn in a gradual and circumferential manner with careful examination of the colonic mucosa. The quality of the prep was good. There was no evidence of any old blood or active bleeding throughout the colon. The patient does have diverticula throughout the colon. There were no polyps or other abnormalities were visualized. Retroflexion in the rectum was unremarkable. The colonoscope was completely withdrawn, and the patient allowed to recover. The patient tolerated the procedure well. There were no immediate postprocedure complications. IMPRESSION: 1. Normal esophagogastroduodenoscopy. 2. Redundant colon with extensive looping, unable to examine the cecal base, but able to examine to the ascending colon. 3. Diverticulosis throughout the whole colon. 4. No evidence of any old blood or active bleeding. RECOMMENDATIONS: 1. We will put him on a full liquid diet tonight. 2. Trend H and H. 3. Surgery is planned for Saturday. Dr. Martinez is covering for GI this . Job ID: [id number]
--- NOTE | 2018-07-11 19:29 | PDOC.GSPN ---
Surgery Progress Note: Subj - Subjective Patient reports: no new complaints, tolerating liquids well (No more bloody stools) Surgery Progress Note: Obj - Vital signs Vital signs: Vital Signs - Most Recent Temp Pulse Resp BP Pulse Ox 98.4 F 77 16 164/73 H 95 07/11/18 10:50 07/11/18 10:50 07/11/18 10:50 07/11/18 10:50 07/11/18 18:58 - Physical Exam General: no distress Abdomen: soft, nondistended Surgery Progress Note: Results - Labs Result Diagrams: 07/11/18 04:36 07/11/18 04:36 Lab results: Laboratory Results - last 24 hr 07/10/18 07/11/18 06:12 04:36 Iron 40 L TIBC 234 L Ferritin 289.70 Surgery Progress Note: A/P - Problem (1) Adenomatous colon polyp Current Visit: Yes Code(s): D12.6 - BENIGN NEOPLASM OF COLON, UNSPECIFIED Status: Acute (2) Anemia due to acute blood loss Current Visit: Yes Code(s): D62 - ACUTE POSTHEMORRHAGIC ANEMIA Status: Acute - Plan Plan: Colonoscopy showed no active bleeding. -Plan right colectomy Saturday -Dr. Eden covering for me this weekend. Please keep on a liquid diet
[2018-07-11] MEDS: Atorvastatin Calcium 10 MG TAB PO SCH (21:18)
[2018-07-12] MEDS: Pantoprazole 80 MG in Sodium Chloride 0.9% 100 ML IVP SCH ×2 (04:22→16:58)
[2018-07-12] MEDS: Lisinopril 20 MG TAB PO SCH (07:35)
[2018-07-12] MEDS: Allopurinol 300 MG TAB PO SCH (07:35)
[2018-07-12] MEDS ORDERED: Pravastatin Sodium 40 MG TAB PO SCH (09:00)
[2018-07-12] MEDS ORDERED: DILTIAZEM HCL 240 MG PO SCH (09:00)
[2018-07-12] MEDS: Sodium Chloride 0.9% 1,000 ML IV SCH ×2 (10:58→23:40)
--- NOTE | 2018-07-12 13:10 | PDOC.PN ---
- Subjective Encounter Start Date: 07/12/18 Encounter Start Time: 13:09 Patient seen and examined, no new issues or complaints, all questions answered. - Objective Resuscitation Status - Order Detail: 07/10/18 07:14 Resuscitation Status Routine Resuscitation Status: FULL: Full Resuscitation Vital Signs & Weight: Vital Signs (12 hours) Temp Pulse Resp BP BP Pulse Ox 07/12/18 10:55 126/67 07/12/18 08:00 92 L 07/12/18 07:35 126/67 07/12/18 06:58 98.5 F 77 19 126/67 92 L Weight Weight 256 lb 6.362 oz Most Recent Monitor Data Heart Rate from ECG 77 NIBP 136/63 NIBP BP-Mean 89 Respiration from ECG 19 SpO2 99 I&O: 07/11/18 07/12/18 07/13/18 06:59 06:59 06:59 Intake Total 6198 0 360 Output Total 11 2 Balance 6187 -2 360 Result Diagrams: 07/11/18 04:36 07/11/18 04:36 Phys Exam - Physical Examination Constitutional: NAD HEENT: PERRLA, moist MMs, sclera anicteric Neck: no nodes, no JVD, supple Respiratory: no wheezing, no rales, no rhonchi Cardiovascular: RRR, no significant murmur, no rub Gastrointestinal: soft, non-tender, no distention Musculoskeletal: no edema, pulses present Dx/Plan (1) GI bleed Code(s): K92.2 - GASTROINTESTINAL HEMORRHAGE, UNSPECIFIED Status: Acute (2) Dyslipidemia Code(s): E78.5 - HYPERLIPIDEMIA, UNSPECIFIED Status: Chronic (3) Hypertension Code(s): I10 - ESSENTIAL (PRIMARY) HYPERTENSION Status: Chronic (4) Obesity (BMI 30.0-34.9) Code(s): E66.9 - OBESITY, UNSPECIFIED Status: Chronic - Plan * clear liquid diet * sx set for saturday for right colectomy * no other changes in plan of care * case and plan d/w patient and at length, they undrstand and agree with this plan.
--- NOTE | 2018-07-12 13:37 | PRG ---
DATE OF SERVICE: 07/12/2018 SUBJECTIVE: Mr. Soler is a very pleasant 67-year-old male, who had colonoscopy and biopsy of a large sessile polyp of the cecum. The polyp is an adenoma. The patient came back with GI bleeding and underwent repeat procedure. As per Dr. Lambert, the colonoscopy did not show any active bleeding. The patient is being seen by Dr. Perez and Dr. Weathers and plan is being made for surgical resection of the right colon mass this coming Saturday. The patient did very well on his own. He is tolerating liquids. There is no nausea. No vomiting. He is not having bowel movement, but is passing a large amount of gas. He has no complaints. OBJECTIVE: VITAL SIGNS: Afebrile, pulse is 77, and blood pressure is 126/67. CARDIOVASCULAR SYSTEM: Within normal limits. LUNGS: Within normal limits. ABDOMEN: Soft. No organomegaly. No tenderness. LABORATORY DATA: The lab data from yesterday, hemoglobin 7.3 and hematocrit 29.3. No blood count done today. RECOMMENDATION: 1. Continue liquid diet. 2. Follow up H and H. 3. We will hold off transfusion until he has any bleeding or his count is dropping down. He is supposed to have surgery on Saturday and hopefully, I believe may be he will benefit by transfusion before surgery. Job ID: [id number]
[2018-07-12] MEDS: Atorvastatin Calcium 10 MG TAB PO SCH (20:08)
[2018-07-13] MEDS: Pantoprazole 80 MG in Sodium Chloride 0.9% 100 ML IVP SCH ×2 (02:59→17:01)
[2018-07-13] MEDS: Sodium Chloride 0.9% 1,000 ML IV SCH ×2 (06:26→20:58)
[2018-07-13] MEDS: metroNIDAZOLE 500 MG TAB PO SCH ×3 (07:50→14:36)
[2018-07-13] MEDS: Allopurinol 300 MG TAB PO SCH (07:50)
[2018-07-13] MEDS: Lisinopril 20 MG TAB PO SCH (07:50)
--- NOTE | 2018-07-13 09:18 | PDOC.PN ---
- Subjective Encounter Start Date: 07/13/18 Encounter Start Time: 09:17 Patient seen and examined, no new issues, all questions answered. - Objective Resuscitation Status - Order Detail: 07/10/18 07:14 Resuscitation Status Routine Resuscitation Status: FULL: Full Resuscitation Vital Signs & Weight: Vital Signs (12 hours) Temp Pulse Resp BP BP Pulse Ox 07/13/18 08:00 90 L 07/13/18 07:50 77 126/67 07/13/18 07:08 97.9 F 77 19 105/51 L 90 L Weight Weight 256 lb 6.362 oz Most Recent Monitor Data Heart Rate from ECG 77 NIBP 136/63 NIBP BP-Mean 89 Respiration from ECG 19 SpO2 99 I&O: 07/12/18 07/13/18 07/14/18 06:59 06:59 06:59 Intake Total 0 2800 420 Output Total 2 Balance -2 2800 420 Result Diagrams: 07/11/18 04:36 07/11/18 04:36 Phys Exam - Physical Examination Constitutional: NAD HEENT: PERRLA, moist MMs, sclera anicteric Neck: no nodes, no JVD, supple Respiratory: no wheezing, no rales, no rhonchi Cardiovascular: RRR, no significant murmur, no rub Gastrointestinal: soft, non-tender, no distention, positive bowel sounds Musculoskeletal: pulses present, edema present (trace) Dx/Plan (1) GI bleed Code(s): K92.2 - GASTROINTESTINAL HEMORRHAGE, UNSPECIFIED Status: Acute (2) Dyslipidemia Code(s): E78.5 - HYPERLIPIDEMIA, UNSPECIFIED Status: Chronic (3) Hypertension Code(s): I10 - ESSENTIAL (PRIMARY) HYPERTENSION Status: Chronic (4) Obesity (BMI 30.0-34.9) Code(s): E66.9 - OBESITY, UNSPECIFIED Status: Chronic - Plan * sx intervention for tmrw * NPO past midnight * no other changes in plan of care * labs in AM * plan d/w patient, she understood and agreed with this plan
[2018-07-13 12:16] LABS: #Eosinphils 0.1 thou/uL (0.0-0.7); #Lymphocytes 1.6 thou/uL (1.20-3.40); #Monocytes 0.8 thou/uL (0.11-0.59); #Neutrophils 3.3 thou/uL (1.40-6.50); %Basophils 0.8 % (0.0-1.0); %Eosinophils 1.7 % (0.0-10.0); %Lymphocytes 26.9 % (21.0-51.0); %Monocytes 13.6 % (0.0-10.0); Hemoglobin 7.1 g/dL (14.0-18.0); Mean Corpuscular Hemoglobin 32.3 pg (27.0-31.0); Mean Corpuscular Volume 97.9 fL (78.0-98.0); Mean Platelet Volume 7.1 fL (7.4-10.4); Platelet Count 166 thou/uL (130-400); RBC Distribution Width 13.4 % (11.5-14.5); White Blood Cell (WBC) Count 5.8 thou/uL (4.8-10.8)
--- NOTE | 2018-07-13 12:18 | PRG ---
DATE OF SERVICE: 07/13/2018 SUBJECTIVE: This is a 67-year-old male with GI bleeding, negative colonoscopy 2 days ago. His blood count is stable, and he is not bleeding anymore. He has no abdominal pain, no nausea or vomiting. He has had no stool, but passing flatus. Blood count is low at 7.3, which was done 2 days ago. Plan is being made for him to have surgery tomorrow. He has no complaints. PHYSICAL EXAMINATION: VITAL SIGNS: Afebrile, pulse is 77, blood pressure is 126/69. CARDIOVASCULAR: Within normal limits. LUNGS: Within normal limits. ABDOMEN: Soft. No organomegaly. No tenderness. No masses. RECOMMENDATION: 1. Repeat CBC today. 2. We may consider packed RBCs before surgery tomorrow. Job ID: [id number]
[2018-07-13] MEDS: Neomycin 500 mg Tablet PO SCH ×3 (17:01→20:36)
[2018-07-13] MEDS: Atorvastatin Calcium 10 MG TAB PO SCH (20:36)
[2018-07-14] MEDS: Pantoprazole 80 MG in Sodium Chloride 0.9% 100 ML IVP SCH (03:35)
[2018-07-14 06:13] LABS: #Eosinphils 0.1 thou/uL (0.0-0.7); #Lymphocytes 1.2 thou/uL (1.20-3.40); #Monocytes 0.6 thou/uL (0.11-0.59); #Neutrophils 2.8 thou/uL (1.40-6.50); %Eosinophils 2.8 % (0.0-10.0); %Lymphocytes 24.2 % (21.0-51.0); %Monocytes 12.8 % (0.0-10.0); %Neutrophils 59.3 % (42.0-75.0); Hemoglobin 7.4 g/dL (14.0-18.0); Mean Corpuscular HGB CONC 32.6 g/dL (32.0-36.0); Mean Corpuscular Hemoglobin 31.6 pg (27.0-31.0); Mean Corpuscular Volume 96.9 fL (78.0-98.0); Mean Platelet Volume 7.3 fL (7.4-10.4); Platelet Count 181 thou/uL (130-400); RBC Distribution Width 13.4 % (11.5-14.5); Red Blood Cell (RBC) Count 2.35 mill/uL (4.70-6.10); White Blood Cell (WBC) Count 4.8 thou/uL (4.8-10.8)
[2018-07-14 06:34] LABS: Anion Gap 6 mmol/L (10-20); BUN (Urea Nitrogen) Less than 4 mg/dL (8.4-25.7); Calc. Creatinine Clearance 153 mL/min (70-130); Calcium 7.4 mg/dL (7.8-10.44); Carbon Dioxide 28 mmol/L (23-31); Chloride 111 mmol/L (98-107); Estimated GFR-MDRD Greater than 90; Glucose 101 mg/dL (80-115); Potassium 3.1 mmol/L (3.5-5.1); Sodium 142 mmol/L (136-145)
[2018-07-14] MEDS: Allopurinol 300 MG TAB PO SCH (07:44)
[2018-07-14] MEDS: Lisinopril 20 MG TAB PO SCH (07:45)
[2018-07-14] MEDS: Sodium Chloride 0.9% 1,000 ML IV SCH ×2 (07:45→21:20)
--- NOTE | 2018-07-14 08:27 | PDOC.PN ---
- Subjective Encounter Start Date: 07/14/18 Encounter Start Time: 11:00 Subjective: Patient doing well. No N/V/Abdominal pain. No more bloody bowel movements. -: Waiting for surgery. - Objective Resuscitation Status - Order Detail: 07/10/18 07:14 Resuscitation Status Routine Resuscitation Status: FULL: Full Resuscitation MAR Reviewed: Yes Vital Signs & Weight: Vital Signs (12 hours) Temp Pulse Resp BP BP Pulse Ox 07/14/18 07:56 92 L 07/14/18 07:45 126/67 07/14/18 07:44 86 07/14/18 07:17 98.6 F 86 22 H 130/68 92 L Weight Weight 256 lb 6.362 oz Most Recent Monitor Data Heart Rate from ECG 77 NIBP 136/63 NIBP BP-Mean 89 Respiration from ECG 19 SpO2 99 I&O: 07/13/18 07/14/18 07/15/18 06:59 06:59 06:59 Intake Total 2800 2580 Balance 2800 2580 Result Diagrams: 07/14/18 06:00 07/14/18 06:00 Phys Exam - Physical Examination Constitutional: NAD HEENT: moist MMs Respiratory: no wheezing, no rales, no rhonchi, clear to auscultation bilateral Cardiovascular: RRR Gastrointestinal: soft, non-tender, positive bowel sounds Neurological: non-focal, moves all 4 limbs Psychiatric: normal affect, A&O x 3 Dx/Plan (1) Adenomatous colon polyp Code(s): D12.6 - BENIGN NEOPLASM OF COLON, UNSPECIFIED Status: Acute Comment : planned right hemicolectomy today (2) GI bleed Code(s): K92.2 - GASTROINTESTINAL HEMORRHAGE, UNSPECIFIED Status: Acute Comment: likely from polyp biopsy site, now stopped (3) Anemia due to acute blood loss Code(s): D62 - ACUTE POSTHEMORRHAGIC ANEMIA Status: Acute Comment: stable just above 7, planned surgery today (4) Dyslipidemia Code(s): E78.5 - HYPERLIPIDEMIA, UNSPECIFIED Status: Chronic (5) Hypertension Code(s): I10 - ESSENTIAL (PRIMARY) HYPERTENSION Status: Chronic (6) Obesity (BMI 30.0-34.9) Code(s): E66.9 - OBESITY, UNSPECIFIED Status: Chronic - Plan cont current plan of care, DVT proph w/SCDs * . - Discharge Day Encounter end time: 11:15
[2018-07-14] MEDS ORDERED: Ketorolac Tromethamine 30 MG/ML VIAL ONE (11:32)
[2018-07-14] MEDS ORDERED: Ondansetron PF 4 MG/2 ML Vial ONE (11:32)
[2018-07-14] MEDS ORDERED: Dexamethasone 20 MG/5 ML VIAL ONE (11:32)
[2018-07-14] MEDS ORDERED: PROPOFOL 200 MG/20 ML VIAL ONE (11:32)
[2018-07-14] MEDS ORDERED: Rocuronium Bromide 10 MG/ML (10ML VIAL) ONE (11:32)
[2018-07-14] MEDS ORDERED: Glycopyrrolate 0.2 MG/ML 5 ML SYRINGE ONE (11:32)
[2018-07-14] MEDS ORDERED: Lidocaine 2% PF 5 ML VIAL ONE (11:32)
[2018-07-14] MEDS ORDERED: Fentanyl 100 MCG/2 ML VIAL ONE ×5 (13:40→17:42)
[2018-07-14] MEDS ORDERED: cefOXitin 2 GM VIAL ONE (13:45)
[2018-07-14] MEDS ORDERED: Sodium Chloride 0.9% 100 ML ONE (13:46)
[2018-07-14] MEDS ORDERED: Bupivacaine/Epinephrine 0.25% 30 ML VIAL ONE (13:52)
[2018-07-14] MEDS ORDERED: Potassium Chloride 10 MEQ in Sodium Chloride 0.9% 250 ML 250 ML IVPB SCH (14:30)
[2018-07-14] MEDS ORDERED: Albumin 5% 500 ML ONE (15:36)
[2018-07-14] MEDS ORDERED: Famotidine/PF 20 mg/2ml Vial ONE (15:37)
[2018-07-14] MEDS ORDERED: SUGAMMADEX SODIUM 200 MG/2 ML VIAL ONE (16:12)
[2018-07-14] MEDS ORDERED: Promethazine HCl 25 MG/ML VIAL SLOW IVP PRN (16:28)
[2018-07-14] MEDS ORDERED: Promethazine HCl 25 MG/ML VIAL IM PRN ×2 (16:28→16:42)
[2018-07-14] MEDS ORDERED: Ondansetron HCl/PF 4 MG/2 ML Vial IVP PRN (16:28)
[2018-07-14] MEDS ORDERED: Fentanyl 100 MCG/2 ML VIAL SLOW IVP PRN ×2 (16:42)
[2018-07-14] MEDS ORDERED: hydrALAZINE 20 MG/ML VIAL SLOW IVP PRN ×2 (16:42→22:30)
[2018-07-14] MEDS ORDERED: Ondansetron PF 4 MG/2 ML Vial IVP PRN (16:42)
[2018-07-14] MEDS: Acetaminophen 1,000 MG in Premix Bag 1 BAG IVPB SCH (19:28)
[2018-07-14] MEDS: Famotidine/PF 20 mg/2ml Vial SLOW IVP SCH (21:21)
[2018-07-14] MEDS: Famotidine 20 MG TAB PO SCH (21:21)
[2018-07-14] MEDS: cefOXitin Sodium/Dextrose,Iso 2 GM in Premix Bag 1 BAG IVPB SCH (21:22)
[2018-07-14] MEDS ORDERED: cloNIDine 0.1 MG TAB PO PRN (22:31)
--- NOTE | 2018-07-15 00:29 | OP ---
DATE OF PROCEDURE: 07/14/2018 PREOPERATIVE DIAGNOSIS: Unresectable polyp, cecum. POSTOPERATIVE DIAGNOSIS: Unresectable polyp, cecum. PROCEDURE PERFORMED: Laparoscopic hand-assisted right hemicolectomy. ANESTHESIA: General. ESTIMATED BLOOD LOSS: 50 mL. COMPLICATIONS: None. SPECIMEN: Right colon opened on the back table to reveal the polyp to be present. DESCRIPTION OF PROCEDURE: The patient was taken to the operating room and laid supine on the operating room table. After general anesthetic was obtained, a Barraza was placed. The abdomen was shaved, prepped and draped in a sterile fashion. Left subcostal 5 mm Optiview trocar was placed in usual fashion. High flow pneumoperitoneum was obtained. Left abdominal 5 mm port and suprapubic 5 mm port were placed in direct visualization. Hand-assist port was placed around and above the umbilicus. Right hand is placed in the abdomen. The right colon was mobilized along the white line of [place]. The hepatic flexure was mobilized. The patient's hepatic flexure was very high going posterior up underneath his liver, so the hand-assist hand was switched to the left hand. The camera was placed in the left upper quadrant and the hepatic flexure was mobilized from the top. This allowed the colon to be brought toward medial. The duodenum was found and excluded from the dissection. The top of the hand-assist port was removed. A ZITA 75 was fired across the terminal ileum. The ileocolic vessels were taken low using Fátima clamp and silk ties. A ZITA 75 stapler was fired across the proximal transverse colon. The final mesentery was taken using the LigaSure. The specimen was opened on the back table to reveal the specimen to be present. An isoperistaltic anastomosis was then performed using ZITA 75 stapler. The common enterotomy was closed using running 2-0 Vicryl. The mesenteric defect was closed using silk sutures. The right upper quadrant was irrigated using sterile solution. Midline fascia was closed using #1 PDS from the top and the bottom, and tied in the middle. All instrument counts, needle counts, lap counts were correct. The subcutaneous tissues were irrigated copiously and the skin was closed using 3-0 Vicryl, 4-0 Monocryl, and Dermabond. The other incisions were closed using 4-0 Monocryl and Dermabond. The patient was sent to Recovery in stable condition. All instrument counts, needle counts, lap counts are correct. Job ID: [id number]
[2018-07-15] MEDS: Acetaminophen 1,000 MG in Premix Bag 1 BAG IVPB SCH ×3 (01:30→12:51)
[2018-07-15 06:28] LABS: #Lymphocytes 0.7 thou/uL (1.20-3.40); #Monocytes 0.7 thou/uL (0.11-0.59); #Neutrophils 11.9 thou/uL (1.40-6.50); %Basophils 0.1 % (0.0-1.0); %Eosinophils 0.1 % (0.0-10.0); %Lymphocytes 5.4 % (21.0-51.0); %Monocytes 4.9 % (0.0-10.0); %Neutrophils 89.6 % (42.0-75.0); Hemoglobin 8.6 g/dL (14.0-18.0); Mean Corpuscular HGB CONC 32.6 g/dL (32.0-36.0); Mean Corpuscular Hemoglobin 31.9 pg (27.0-31.0); Mean Corpuscular Volume 97.8 fL (78.0-98.0); Mean Platelet Volume 7.4 fL (7.4-10.4); Platelet Count 241 thou/uL (130-400); RBC Distribution Width 13.3 % (11.5-14.5); White Blood Cell (WBC) Count 13.3 thou/uL (4.8-10.8)
[2018-07-15] MEDS: cefOXitin Sodium/Dextrose,Iso 2 GM in Premix Bag 1 BAG IVPB SCH ×3 (06:28→20:08)
[2018-07-15 06:41] LABS: Anion Gap 14 mmol/L (10-20); BUN (Urea Nitrogen) 8 mg/dL (8.4-25.7); Calc. Creatinine Clearance 139 mL/min (70-130); Calcium 7.9 mg/dL (7.8-10.44); Carbon Dioxide 21 mmol/L (23-31); Chloride 109 mmol/L (98-107); Estimated GFR-MDRD 90; Glucose 126 mg/dL (80-115); Potassium 3.6 mmol/L (3.5-5.1); Sodium 140 mmol/L (136-145)
--- NOTE | 2018-07-15 08:37 | PDOC.GSPN ---
Surgery Progress Note: Subj - Subjective Patient reports: no new complaints, tolerating liquids well Surgery Progress Note: Obj - Vital signs Vital signs: Vital Signs - Most Recent Temp Pulse Resp BP Pulse Ox 98.6 F 84 20 185/72 H 92 L 07/15/18 08:00 07/15/18 08:00 07/15/18 08:00 07/15/18 08:00 07/15/18 08:00 - Physical Exam General: no distress Cardiovascular: regular rate and rhythm Respiratory: clear to auscultation Abdomen: soft, appropriately tender Wound: healing well Surgery Progress Note: Results - Labs Result Diagrams: 07/15/18 06:10 07/15/18 06:10 Lab results: Laboratory Results - last 24 hr 07/14/18 07/15/18 07/15/18 21:02 06:10 06:10 WBC 13.3 H RBC 2.70 L Hgb 8.6 L Hct 26.4 L MCV 97.8 MCH 31.9 H MCHC 32.6 RDW 13.3 Plt Count 241 MPV 7.4 Neutrophils % 89.6 H Lymphocytes % 5.4 L Monocytes % 4.9 Eosinophils % 0.1 Basophils % 0.1 Neutrophils # 11.9 H Lymphocytes # 0.7 L Monocytes # 0.7 H Eosinophils # 0.0 Basophils # 0.0 Sodium 140 Potassium 3.6 Chloride 109 H Carbon Dioxide 21 L Anion Gap 14 BUN 8 L Creatinine 0.85 Estimated GFR (MDRD) 90 Glucose 126 H POC Glucose 125 H Calcium 7.9 07/15/18 06:24 WBC RBC Hgb Hct MCV MCH MCHC RDW Plt Count MPV Neutrophils % Lymphocytes % Monocytes % Eosinophils % Basophils % Neutrophils # Lymphocytes # Monocytes # Eosinophils # Basophils # Sodium Potassium Chloride Carbon Dioxide Anion Gap BUN Creatinine Estimated GFR (MDRD) Glucose POC Glucose 137 H Calcium Surgery Progress Note: A/P - Problem (1) Adenomatous colon polyp Current Visit: Yes Code(s): D12.6 - BENIGN NEOPLASM OF COLON, UNSPECIFIED Status: Acute (2) Anemia due to acute blood loss Current Visit: Yes Code(s): D62 - ACUTE POSTHEMORRHAGIC ANEMIA Status: Acute - Plan Plan: POD 1 right colectomy -ambulate -full liquids tonight -DC lee
[2018-07-15] MEDS: Famotidine 20 MG TAB PO SCH ×2 (08:42→20:06)
[2018-07-15] MEDS: Lisinopril 20 MG TAB PO SCH (08:43)
[2018-07-15] MEDS: Famotidine/PF 20 mg/2ml Vial SLOW IVP SCH ×2 (08:43→20:06)
--- NOTE | 2018-07-15 12:00 | PDOC.PN ---
- Subjective Encounter Start Date: 07/15/18 Encounter Start Time: 11:58 Subjective: Pt is seen and examined for GI bleed S/p Rt Hemicollectomy -: Pt is feeling better, POD #1 - Objective Resuscitation Status - Order Detail: 07/10/18 07:14 Resuscitation Status Routine Resuscitation Status: FULL: Full Resuscitation MAR Reviewed: Yes Vital Signs & Weight: Vital Signs (12 hours) Temp Pulse Resp BP BP Pulse Ox 07/15/18 11:27 97.8 F 81 18 184/85 H 91 L 07/15/18 08:43 185/72 H 07/15/18 08:00 98.6 F 84 20 185/72 H 92 L Weight Weight 256 lb 6.362 oz Most Recent Monitor Data Heart Rate from ECG 77 NIBP 136/63 NIBP BP-Mean 89 Respiration from ECG 19 SpO2 99 I&O: 07/14/18 07/15/18 07/16/18 06:59 06:59 06:59 Intake Total 2580 Output Total 1200 Balance 2580 -1200 Result Diagrams: 07/15/18 06:10 07/15/18 06:10 Additional Labs: Accuchecks 07/15/18 07/15/18 07/14/18 11:24 06:24 21:02 POC Glucose 194 H 137 H 125 H 07/14/18 16:42 POC Glucose 115 H Radiology Reviewed by me: Yes Phys Exam - Physical Examination HEENT: PERRLA, moist MMs Neck: no nodes, no JVD, supple Respiratory: no wheezing, no rales, no rhonchi, clear to auscultation bilateral Cardiovascular: RRR, no significant murmur, no rub Gastrointestinal: soft, no distention, positive bowel sounds S/p Dressing Musculoskeletal: no edema Neurological: non-focal, normal sensation Lymphatic: no nodes Psychiatric: normal affect, A&O x 3 Dx/Plan (1) Adenomatous colon polyp Code(s): D12.6 - BENIGN NEOPLASM OF COLON, UNSPECIFIED Status: Acute Qualifiers: Qualified Code(s): D12.6 - Benign neoplasm of colon, unspecified Comment: S/P right hemicolectomy , POD #1 (2) Anemia due to acute blood loss Code(s): D62 - ACUTE POSTHEMORRHAGIC ANEMIA Status: Acute Comment: stable just above 7, planned surgery today (3) GI bleed Code(s): K92.2 - GASTROINTESTINAL HEMORRHAGE, UNSPECIFIED Status: Acute Comment: likely from polyp biopsy site, now stopped (4) Hypokalemia Code(s): E87.6 - HYPOKALEMIA Status: Acute (5) Hypertension Code(s): I10 - ESSENTIAL (PRIMARY) HYPERTENSION Status: Chronic (6) Obesity (BMI 30.0-34.9) Code(s): E66.9 - OBESITY, UNSPECIFIED Status: Chronic - Plan cont current plan of care, DVT proph w/SCDs Full Liquid as tolerated * . Review of Systems - Review of Systems Eyes: negative: Pain, Vision Change, Conjunctivae Inflammation, Eyelid Inflammation, Redness, Other ENT: negative: Ear Pain, Ear Discharge, Nose Pain, Nose Discharge, Nose Congestion, Mouth Pain, Mouth Swelling, Throat Pain, Throat Swelling, Other Respiratory: negative: Cough, Dry, Shortness of Breath, Hemoptysis, SOB with Excertion, Pleuritic Pain, Sputum, Wheezing Cardiovascular: negative: chest pain, palpitations, orthopnea, paroxysmal nocturnal dyspnea, edema, light headedness, other Gastrointestinal: Abdominal Pain. negative: Nausea, Vomiting, Diarrhea, Constipation, Melena, Hematochezia, Other Genitourinary: negative: Dysuria, Frequency, Incontinence, Hematuria, Retention , Other Musculoskeletal: negative: Neck Pain, Shoulder Pain, Arm Pain, Back Pain, Hand Pain, Leg Pain, Foot Pain, Other Skin: negative: Rash, Lesions, Kayode, Bruising, Other - Medications/Allergies Allergies/Adverse Reactions: Allergies Allergy/AdvReac Type Severity Reaction Status Date / Time No Known Allergies Allergy Verified 09/14/17 00:34 Medications: Current Medications Hydrocodone Bitart/Acetaminophen ([place] 7.5/325) 1 tab PO Q4H PRN PRN Reason: Moderate Pain (4-6) Albuterol/Ipratropium (Duoneb) 3 ml NEB Q4H PRN PRN Reason: Wheezing Clonidine (Catapres) 0.1 mg PO Q1H PRN PRN Reason: SBP Greater Than 170 Enoxaparin Sodium (Lovenox) 40 mg SC 2100 ELLEN Famotidine (Pepcid) 20 mg PO Q12HR [facility] Last Admin: 07/15/18 08:42 Dose: Not Given Famotidine (Pepcid) 20 mg SLOW IVP Q12HR [facility] Last Admin: 07/15/18 08:43 Dose: 20 mg Fentanyl (Sublimaze) 25 mcg SLOW IVP Q2H PRN PRN Reason: Mild Pain (1-3) Fentanyl (Sublimaze) 50 mcg SLOW IVP Q2H PRN PRN Reason: Moderate to Severe Pain (6-10) Hydralazine HCl (Apresoline) 20 mg SLOW IVP Q4H PRN PRN Reason: SBP > 170 or DBP > 100 Sodium Chloride (Normal Saline 0.9%) 1,000 mls @ 75 mls/hr IV .[id number] [facility] Last Admin: 07/14/18 21:20 Dose: 1,000 mls Acetaminophen 1,000 mg/ Device 100 mls @ 400 mls/hr IVPB Q6HR [facility] Stop: 07/15/18 12:14 Last Admin: 07/15/18 06:27 Dose: 100 mls Cefoxitin Sodium/Dextrose 2 gm (/ Device) 50 mls @ 50 mls/hr IVPB Q8HR [facility] Last Admin: 07/15/18 06:28 Dose: 50 mls Lisinopril (Zestril) 20 mg PO QAM [facility] Last Admin: 07/15/18 08:43 Dose: 20 mg Ondansetron HCl (Zofran) 4 mg IVP Q6H PRN PRN Reason: Nausea/Vomiting Promethazine HCl (Phenergan) 12.5 mg IM Q4H PRN PRN Reason: Nausea/Vomiting Sodium Chloride (Flush - Normal Saline) 10 ml IVF PRN PRN PRN Reason: Saline Flush Last Admin: 07/14/18 20:32 Dose: 10 ml
[2018-07-15] MEDS: Sodium Chloride 0.9% 1,000 ML IV SCH (12:52)
[2018-07-15] MEDS ORDERED: HYDROcodone/Acetaminophen 7.5/325 mg Tablet PO PRN (16:18)
[2018-07-15] MEDS ORDERED: Enoxaparin Sodium 40 MG/0.4 ML SYRINGE SC SCH (21:00)
--- NOTE | 2018-07-15 23:02 | EKG ---
Test Reason : PREOP Blood Pressure : / mmHG Vent. Rate : 075 BPM Atrial Rate : 075 BPM P-R Int : 208 ms QRS Dur : 096 ms QT Int : 404 ms P-R-T Axes : 020 022 034 degrees QTc Int : 451 ms Normal sinus rhythm Low voltage QRS /Limb leads Borderline ECG No previous ECGs available Confirmed by NATE LOPEZ ([id number]) on 07/15/2018 11:01:45 PM Referred By: NEDRA Confirmed By:NATE LOPEZ
[2018-07-16] MEDS: Sodium Chloride 0.9% 1,000 ML IV SCH (04:15)
[2018-07-16] MEDS: cefOXitin Sodium/Dextrose,Iso 2 GM in Premix Bag 1 BAG IVPB SCH (06:14)
[2018-07-16 06:56] LABS: #Lymphocytes 1.3 thou/uL (1.20-3.40); #Monocytes 0.9 thou/uL (0.11-0.59); #Neutrophils 8.4 thou/uL (1.40-6.50); %Basophils 0.1 % (0.0-1.0); %Eosinophils 0.2 % (0.0-10.0); %Lymphocytes 11.9 % (21.0-51.0); %Monocytes 8.1 % (0.0-10.0); %Neutrophils 79.7 % (42.0-75.0); Hemoglobin 8.2 g/dL (14.0-18.0); Mean Corpuscular HGB CONC 32.5 g/dL (32.0-36.0); Mean Corpuscular Volume 98.4 fL (78.0-98.0); Mean Platelet Volume 7.3 fL (7.4-10.4); Platelet Count 249 thou/uL (130-400); RBC Distribution Width 13.1 % (11.5-14.5); Red Blood Cell (RBC) Count 2.55 mill/uL (4.70-6.10); White Blood Cell (WBC) Count 10.6 thou/uL (4.8-10.8)
[2018-07-16 07:33] LABS: Anion Gap 8 mmol/L (10-20); BUN (Urea Nitrogen) 8 mg/dL (8.4-25.7); Calc. Creatinine Clearance 149 mL/min (70-130); Calcium 8.1 mg/dL (7.8-10.44); Carbon Dioxide 26 mmol/L (23-31); Chloride 108 mmol/L (98-107); Estimated GFR-MDRD Greater than 90; Glucose 117 mg/dL (80-115); Potassium 3.3 mmol/L (3.5-5.1); Sodium 139 mmol/L (136-145)
[2018-07-16] MEDS: Famotidine 20 MG TAB PO SCH (10:01)
[2018-07-16] MEDS: Famotidine/PF 20 mg/2ml Vial SLOW IVP SCH (10:01)
[2018-07-16] MEDS: Lisinopril 20 MG TAB PO SCH (10:01)
--- NOTE | 2018-07-16 10:14 | PDOC.GSPN ---
Surgery Progress Note: Subj - Subjective Patient reports: no new complaints, tolerating liquids well Surgery Progress Note: Obj - Vital signs Vital signs: Vital Signs - Most Recent Temp Pulse Resp BP Pulse Ox 98.1 F 89 12 137/71 92 L 07/16/18 08:10 07/16/18 08:10 07/16/18 08:10 07/16/18 10:01 07/16/18 08:10 - Physical Exam General: no distress Respiratory: clear to auscultation Abdomen: soft, appropriately tender Wound: healing well Surgery Progress Note: Results - Labs Result Diagrams: 07/16/18 06:16 07/16/18 06:16 Lab results: Laboratory Results - last 24 hr 07/16/18 07/16/18 07/16/18 05:28 06:16 06:16 WBC 10.6 RBC 2.55 L Hgb 8.2 L Hct 25.1 L MCV 98.4 H MCH 32.0 H MCHC 32.5 RDW 13.1 Plt Count 249 MPV 7.3 L Neutrophils % 79.7 H Lymphocytes % 11.9 L Monocytes % 8.1 Eosinophils % 0.2 Basophils % 0.1 Neutrophils # 8.4 H Lymphocytes # 1.3 Monocytes # 0.9 H Eosinophils # 0.0 Basophils # 0.0 Sodium 139 Potassium 3.3 L Chloride 108 H Carbon Dioxide 26 Anion Gap 8 L BUN 8 L Creatinine 0.79 Estimated GFR (MDRD) Greater than 90 Glucose 117 H POC Glucose 125 H Calcium 8.1 Surgery Progress Note: A/P - Problem (1) Adenomatous colon polyp Current Visit: Yes Code(s): D12.6 - BENIGN NEOPLASM OF COLON, UNSPECIFIED Status: Acute Qualifiers: Qualified Code(s): D12.6 - Benign neoplasm of colon, unspecified (2) Anemia due to acute blood loss Current Visit: Yes Code(s): D62 - ACUTE POSTHEMORRHAGIC ANEMIA Status: Acute - Plan Plan: Doing well. Hunter full liquids -DC today -f/u me 2 weeks -Corinth/zofran sent to [facility] in [place] [place] on [address]
[2018-07-16 11:48] VITALS: BP 145/76; TEMP 97.6
== END 2018-07-16 12:28 | disposition home or self-care (01) | DRG 330 ==
LOC: ERS 05:51 → CCU 08:04 → T4-A 07-11 10:58 → SURG B 07-14 18:19
PROVIDERS: ADMIT Internal Medicine; ATTEND Internal Medicine
PROC: 0DJ08ZZ Inspection of Upper Intestinal Tract, Via Natural or Artificial Opening Endoscopic (ICD-10-PCS; principal; 2018-07-11)
PROC: 0DJD8ZZ Inspection of Lower Intestinal Tract, Via Natural or Artificial Opening Endoscopic (ICD-10-PCS; 2018-07-11)
PROC: 0DTF4ZZ Resection of Right Large Intestine, Percutaneous Endoscopic Approach (ICD-10-PCS; 2018-07-14)
DX: D12.0 Benign neoplasm of cecum (principal); D62 Acute posthemorrhagic anemia; Q43.8 Other specified congenital malformations of intestine; I48.0 Paroxysmal atrial fibrillation; M10.9 Gout, unspecified; K57.30 Diverticulosis of large intestine without perforation or abscess without bleeding; I10 Essential (primary) hypertension; E66.9 Obesity, unspecified; E78.5 Hyperlipidemia, unspecified; I95.9 Hypotension, unspecified; E87.6 Hypokalemia; F17.229 Nicotine dependence, chewing tobacco, with unspecified nicotine-induced disorders; Z79.82 Long term (current) use of aspirin; Z98.890 Other specified postprocedural states; Z68.33 Body mass index [BMI] 33.0-33.9, adult; Z85.46 Personal history of malignant neoplasm of prostate; Z90.79 Acquired absence of other genital organ(s); Z79.899 Other long term (current) drug therapy
CPT/HCPCS: 36415; 36416; 36430; 78278; 80048; 80053; 82728; 82805; 83540; 83550; 83605; 85014; 85018; 85025; 85610; 85730; 86850; 86900; 86901; 88307; 93005; 93010; 96365; 96374; A9604; C9113; J0131; J0360; J0694; J1100; J1650; J1885; J2001; J2405; J2704; J3010; J3480; J3490; J7050; P9016; P9045; S0028

== ENCOUNTER 2019-02-02 09:11 | Day surgery (SDC) | payer BC ==
[2019-01-30 12:19] VITALS: BMI 34.9
[2019-02-02 10:14] LABS: Hemoglobin 14.6 g/dL (14.0-18.0); Mean Corpuscular HGB CONC 32.1 g/dL (32.0-36.0); Mean Corpuscular Hemoglobin 28.3 pg (27.0-31.0); Mean Corpuscular Volume 88.1 fL (78.0-98.0); Mean Platelet Volume 7.4 fL (7.4-10.4); Platelet Count 185 thou/uL (130-400); RBC Distribution Width 14.6 % (11.5-14.5); Red Blood Cell (RBC) Count 5.16 mill/uL (4.70-6.10); White Blood Cell (WBC) Count 5.9 thou/uL (4.8-10.8)
[2019-02-02 10:20] LABS: PTT 28.5 SEC (22.9-36.1); Prothrombin Time 13.2 SEC (12.0-14.7)
[2019-02-02 10:32] LABS: Anion Gap 12 mmol/L (10-20); BUN (Urea Nitrogen) 10 mg/dL (8.4-25.7); Calc. Creatinine Clearance 141 mL/min (70-130); Calcium 9.2 mg/dL (7.8-10.44); Carbon Dioxide 26 mmol/L (23-31); Chloride 107 mmol/L (98-107); Estimated GFR-MDRD 90; Glucose 111 mg/dL (80-115); Potassium 4.6 mmol/L (3.5-5.1); Sodium 140 mmol/L (136-145)
[2019-02-02] MEDS ORDERED: ePHEDrine/0.9% NaCl/PF SYRINGE 50 mg/10 ml ONE (10:34)
[2019-02-02] MEDS ORDERED: Lidocaine 1% PF 5 ML VIAL ONE (10:34)
[2019-02-02] MEDS ORDERED: PHENYLEPHRINE-NS 100 MCG/ML 10 ML SYRINGE ONE (10:34)
[2019-02-02] MEDS ORDERED: Ondansetron PF 4 MG/2 ML Vial ONE (10:34)
[2019-02-02] MEDS ORDERED: PROPOFOL 200 MG/20 ML VIAL ONE (10:34)
[2019-02-02] MEDS ORDERED: Fentanyl 100 MCG/2 ML VIAL ONE (11:07)
[2019-02-02] MEDS ORDERED: Bupivacaine 0.25% HCL 30 ML VIAL ONE (11:12)
[2019-02-02] MEDS ORDERED: Bacitracin Zinc Ointment 30 gm TUBE ONE (11:12)
--- NOTE | 2019-02-02 13:34 | OP ---
DATE OF PROCEDURE: 02/02/2019 PREOPERATIVE DIAGNOSIS: Right hydrocele. POSTOPERATIVE DIAGNOSIS: Right spermatocele. PROCEDURE PERFORMED: Right spermatocelectomy. ANESTHETIC: General with local. ESTIMATED BLOOD LOSS: Less than 25 mL. DRAINS: None. PATH: Spermatocele contained sent to Pathology. FINDINGS: It was a large spermatocele attached to the lower pole of the epididymis. It was inside of the tunica vaginalis, so we had to dissect that out from the tunica vaginalis. There was no hydrocele per se and the tunica vaginalis was very thin, healthy-appearing layer was not removed. The testicles otherwise not abnormal. DESCRIPTION OF PROCEDURE: Obtained written and verbal consent from the patient, after documenting normal preoperative blood work and after receiving some IV antibiotics, he was taken to the operating suite. He was placed in the supine position on the treatment table. PlexiPulses were placed on his lower extremities and turned on. He was given a general anesthetic and oral obturator intubation. He was shaved and sterilely prepped and draped. The lower median raphae were infiltrated with 0.25% Marcaine without epinephrine and we cut along this with a skin knife going down into the right hemiscrotum with electrocautery unit to the level of this mass. We were able to dissect this out of the scrotum and then, we realized this was a large spermatocele. We found an area to open up the tunica vaginalis and then, get the spermatocele out from it dissecting around it gently and bluntly for the most part using electrocautery unit for any small blood vessels. Once this was completely freed up, we secured at the lower pole epididymis with 4-0 Vicryl to its connection to the epididymis. There were couple holes on it, that we tied off with some Vicryl to keep the specimen itself intact to sent to Pathology. We then irrigated out the wound, obtained hemostasis. We loosely closed the tunica vaginalis, placed the testicle back into the hemiscrotum, closed that in two layers. Initially, it was a [id number] stitches of the scrotal muscular wall and then U-stitches of the skin. Fluffs and wet panties were then placed. The patient was awakened and extubated, taken by stretcher to recovery room. Job ID: [id number]
== END 2019-02-02 15:15 | disposition home or self-care (01) ==
LOC: SDC 09:11
PROVIDERS: ATTEND Urology
PROC: 0VBJ0ZZ Excision of Right Epididymis, Open Approach (ICD-10-PCS; principal; 2019-02-02)
DX: N43.41 Spermatocele of epididymis, single (principal); I10 Essential (primary) hypertension
CPT/HCPCS: 80048; 85027; 85610; 85730; 88304; J0690; J2001; J2405; J2704; J3010; S0020

== ENCOUNTER 2019-09-18 08:01 | Outpatient (CLI) | payer BC, OTHER ==
[2019-09-18 16:42] LABS: #Eosinphils 0.1 thou/uL (0.0-0.7); #Lymphocytes 1.4 thou/uL (1.20-3.40); #Monocytes 0.7 thou/uL (0.11-0.59); #Neutrophils 4.1 thou/uL (1.40-6.50); %Basophils 0.6 % (0.0-1.0); %Eosinophils 1.4 % (0.0-10.0); %Lymphocytes 22.5 % (21.0-51.0); %Neutrophils 64.4 % (42.0-75.0); Hemoglobin 16.8 g/dL (14.0-18.0); Mean Corpuscular Hemoglobin 30.6 pg (27.0-31.0); Mean Corpuscular Volume 95.5 fL (78.0-98.0); Mean Platelet Volume 8.2 fL (7.4-10.4); Platelet Count 182 thou/uL (130-400); RBC Distribution Width 13.1 % (11.5-14.5); Red Blood Cell (RBC) Count 5.49 mill/uL (4.70-6.10); White Blood Cell (WBC) Count 6.4 thou/uL (4.8-10.8)
[2019-09-18 17:01] LABS: Anion Gap 16 mmol/L (10-20); BUN (Urea Nitrogen) 12 mg/dL (8.4-25.7); Calc. Creatinine Clearance 0 mL/min (70-130); Carbon Dioxide 25 mmol/L (23-31); Chloride 101 mmol/L (98-107); Estimated GFR-MDRD 70; Glucose 167 mg/dL (80-115); Potassium 4.2 mmol/L (3.5-5.1); Sodium 138 mmol/L (136-145)
[2019-09-19 13:14] LABS: SARS-CoV-2 MS2 Positive; SARS-CoV-2 N Gene Negative; SARS-CoV-2 S Gene Negative; SARS-CoV-2 orf1ab Negative
== END 2019-09-18 08:02 | disposition home or self-care (01) ==
LOC: LABBT 08:01
PROVIDERS: ATTEND Surgery
DX: Z01.812 Encounter for preprocedural laboratory examination (principal); Z11.59 Encounter for screening for other viral diseases; K43.2 Incisional hernia without obstruction or gangrene
CPT/HCPCS: 80048; 85025; 87635; U0003

== ENCOUNTER 2019-09-23 05:44 | Observation (INO) | payer BC ==
[2019-09-17 12:40] VITALS: BMI 34.8
[2019-09-23] MEDS ORDERED: Fentanyl 250 MCG/5 ML VIAL ONE (06:58)
[2019-09-23] MEDS ORDERED: Bupivacaine 0.25% HCL 30 ML VIAL ONE (07:00)
[2019-09-23] MEDS ORDERED: Lidocaine 1% w/Epinephrine 1:100K 20 ML VIAL ONE (07:00)
[2019-09-23] MEDS ORDERED: SUGAMMADEX SODIUM 200 MG/2 ML VIAL ONE (07:29)
[2019-09-23] MEDS ORDERED: Promethazine HCl 25 MG/ML VIAL SLOW IVP PRN (08:58)
[2019-09-23] MEDS ORDERED: Ondansetron HCl/PF 4 MG/2 ML Vial IVP PRN (08:58)
[2019-09-23] MEDS ORDERED: Promethazine HCl 25 MG/ML VIAL IM PRN ×2 (08:58→10:30)
[2019-09-23] MEDS ORDERED: Fentanyl 100 MCG/2 ML VIAL ONE ×3 (09:10→09:42)
[2019-09-23] MEDS ORDERED: Glycopyrrolate 0.2 MG/ML 5 ML SYRINGE ONE (09:54)
[2019-09-23] MEDS ORDERED: PROPOFOL 200 MG/20 ML VIAL ONE (09:54)
[2019-09-23] MEDS ORDERED: Rocuronium Bromide 10 MG/ML (10ML VIAL) ONE (09:54)
[2019-09-23] MEDS ORDERED: PHENYLEPHRINE-NS 100 MCG/ML 10 ML SYRINGE ONE (09:54)
[2019-09-23] MEDS ORDERED: Lidocaine 1% PF 5 ML VIAL ONE (09:54)
[2019-09-23] MEDS ORDERED: Ondansetron PF 4 MG/2 ML Vial ONE (09:54)
[2019-09-23] MEDS ORDERED: Esmolol 100 MG/10 ML VIAL ONE (09:54)
[2019-09-23] MEDS ORDERED: Morphine 2 MG/ML SYRINGE SLOW IVP PRN (10:30)
[2019-09-23] MEDS ORDERED: Dextrose 5% in Water 1,000 ML IV PRN (10:30)
[2019-09-23] MEDS ORDERED: hydrALAZINE 20 MG/ML VIAL SLOW IVP PRN (10:30)
[2019-09-23] MEDS ORDERED: HYDROcodone/Acetaminophen 7.5/325 mg Tablet PO PRN ×2 (10:30)
[2019-09-23] MEDS ORDERED: Morphine 4 MG/ML VIAL SLOW IVP PRN (10:30)
[2019-09-23] MEDS ORDERED: Sodium Chloride 0.9% 1,000 ML IV SCH (10:30)
[2019-09-23] MEDS ORDERED: Dextrose 50% Abboject 50 ML SYRINGE SLOW IVP PRN (10:30)
[2019-09-23] MEDS ORDERED: Ondansetron PF 4 MG/2 ML Vial IVP PRN (10:30)
[2019-09-23] MEDS: Famotidine 20 MG TAB PO SCH (19:50)
[2019-09-23] MEDS: Famotidine/PF 20 mg/2ml Vial SLOW IVP SCH (19:57)
[2019-09-23] MEDS ORDERED: Atorvastatin Calcium 10 MG TAB PO SCH (21:00)
--- NOTE | 2019-09-24 06:57 | PDOC.GSPN ---
Surgery Progress Note: Subj - Subjective Narrative: Mr. Ling is status post op day 1 from a Da Wil robotic hernia repair. Patient had no overnight events and appears to be doing well. He had a small bowel movement this morning with positive flatus. He reports mild tenderness at the incision sites. Surgery Progress Note: Obj - Vital signs Vital signs: Vital Signs - Most Recent Temp Pulse Resp BP Pulse Ox 99.3 F 89 16 134/74 92 L 09/24/19 03:09 09/24/19 03:09 09/24/19 03:09 09/24/19 03:09 09/24/19 03:09 - Physical Exam General: no distress Cardiovascular: regular rate and rhythm Respiratory: clear to auscultation, normal respiratory effort, breath sounds present Abdomen: soft, positive bowel sounds, appropriately tender Psychiatric: memory intact Wound: dressing clean,dry,intact, healing well. negative: drainage, erythma/ edema Surgery Progress Note: A/P - Problem (1) S/P repair of ventral hernia Current Visit: Yes Code(s): Z98.890 - OTHER SPECIFIED POSTPROCEDURAL STATES; Z87.19 - PERSONAL HISTORY OF OTHER DISEASES OF THE DIGESTIVE SYSTEM Status: Acute - Plan Plan: 1. s/p repair of ventral hernia - advance diet as necessary - ensure adequate po fluid intake Mr. Ling is able to consume fluids and pass bowel movements with flatus. He reports mild tenderness at the incision sites, but is well-controlled with medication. Plan for discharge today. Addendum - Physician - Physician Attestation Date/Time: 09/24/19923 I personally performed or re-performed the physical examination and medical decision making. I have verified all student documentation or findings, including history, physical exam and/or medical decision making.
[2019-09-24 08:40] VITALS: BP 133/82; TEMP 97.9
[2019-09-24] MEDS ORDERED: Lisinopril 20 MG TAB PO SCH (09:00)
[2019-09-24] MEDS ORDERED: Allopurinol 300 MG TAB PO SCH (09:00)
--- NOTE | 2019-09-24 09:38 | DIS ---
DATE OF ADMISSION: 09/23/2019 DATE OF DISCHARGE: 09/24/2019 ADMITTING DIAGNOSIS: Incisional hernia. DISCHARGE DIAGNOSIS: Incisional hernia. PROCEDURE: Incisional hernia repair with mesh by Dr. Weathers without complication. CONDITION ON DISCHARGE: Improved. STAFF: Dr. Weathers. HOSPITAL COURSE: See hospital chart for details. Hospitalization on postop day 1, the patient's pain is controlled. He is ambulatory, is discharged home. Job ID: [id number]
[2019-09-24] MEDS: Famotidine 20 MG TAB PO SCH (10:06)
[2019-09-24] MEDS: Famotidine/PF 20 mg/2ml Vial SLOW IVP SCH (10:06)
--- NOTE | 2019-09-28 09:55 | OP ---
DATE OF PROCEDURE: 09/23/2019 PREOPERATIVE DIAGNOSIS: Incisional hernia, incarcerated. POSTOPERATIVE DIAGNOSIS: Incisional hernia, incarcerated. PROCEDURE PERFORMED: Incisional hernia repair with mesh, laparoscopic DaVinci robot. ANESTHESIA: General. ESTIMATED BLOOD LOSS: Minimal. COMPLICATIONS: None. SPECIMENS: None. FINDINGS: There is small amount of intestine and omentum incarcerated in this hernia. DESCRIPTION OF PROCEDURE: The patient was taken to the operating room and laid supine on the operating room table. After general anesthetic was obtained, a Barraza was placed. The abdomen was shaved, prepped, and draped in a sterile fashion. Left subcostal 5-mm Optiview trocar placed in usual fashion and high-flow pneumoperitoneum was obtained. Left and right abdominal lateral subcostal 8-mm robotic trocars were placed. The 5 mm in the subxiphoid port was switched out to 11 mm balloon port. All ports were docked to the robot. There were multiple adhesions to the posterior abdominal wall in the area of previous prostatectomy. There was some small bowel reduced out of the hernia, some omentum reduced out of the hernia. The peritoneum was taken down exposing the posterior fascia. The fascial defect, which was 3 to 4 cm in diameter was closed using running #1 V-Loc suture. An [address] mesh was brought into the sterile field, passed into the abdomen. The exposed mesh side was placed up against the posterior fascia, nonadherent barriers left underneath exposed to the abdominal viscera. This mesh was sewn to the posterior fascia using running 2-0 V-Loc suture. All needles were removed from the abdomen and accounted for. No damage to any intraabdominal structures. All port sites were infiltrated using local anesthetic. GraNee needle, 0 Vicryl ties used to close the fascial defect at the subcostal 11-mm port site. All ports were removed without bleeding. Pneumoperitoneum was let down. 4-0 Monocryl and Dermabond were used to close all skin incisions. The patient was sent to Recovery in stable condition. All instrument counts, needle counts, and lap counts were correct. Job ID: [id number]
== END 2019-09-24 11:51 | disposition home or self-care (01) ==
LOC: SDC 05:44 → SURG B 09:12
PROVIDERS: ADMIT Surgery; ATTEND Surgery
PROC: 0WUF4JZ Supplement Abdominal Wall with Synthetic Substitute, Percutaneous Endoscopic Approach (ICD-10-PCS; principal; 2019-09-23)
DX: K43.0 Incisional hernia with obstruction, without gangrene (principal); M10.9 Gout, unspecified; F17.290 Nicotine dependence, other tobacco product, uncomplicated; Z79.82 Long term (current) use of aspirin; Z79.899 Other long term (current) drug therapy
CPT/HCPCS: 96374; 96376; C1781; G0378; J0690; J2405; J2704; J3010; S0020; S0028

== ENCOUNTER 2020-02-29 09:16 | Emergency (ER) | payer BC ==
[2020-02-29 09:54] LABS: #Basophils 0.1 thou/uL (0.0-0.2); #Eosinphils 0.1 thou/uL (0.0-0.7); #Lymphocytes 1.4 thou/uL (1.20-3.40); #Monocytes 0.6 thou/uL (0.11-0.59); #Neutrophils 2.3 thou/uL (1.40-6.50); %Basophils 1.2 % (0.0-1.0); %Eosinophils 1.8 % (0.0-10.0); Hemoglobin 15.1 g/dL (14.0-18.0); Mean Corpuscular Hemoglobin 33.6 pg (27.0-31.0); Mean Corpuscular Volume 98.9 fL (78.0-98.0); Mean Platelet Volume 7.3 fL (7.4-10.4); Platelet Count 176 thou/uL (130-400); RBC Distribution Width 11.6 % (11.5-14.5); White Blood Cell (WBC) Count 4.4 thou/uL (4.8-10.8)
[2020-02-29 10:02] LABS: PTT 29.2 sec (22.9-36.1); Prothrombin Time 13.5 sec (12.0-14.7)
[2020-02-29 10:20] LABS: ALT (SGPT) 22 U/L (8-55); AST (SGOT) 28 U/L (5-34); Albumin 3.8 g/dL (3.4-4.8); Alkaline Phosphatase 74 U/L (40-110); Anion Gap 14 mmol/L (10-20); BUN (Urea Nitrogen) 12 mg/dL (8.4-25.7); Calc. Creatinine Clearance 0 mL/min (70-130); Calcium 8.6 mg/dL (7.8-10.44); Carbon Dioxide 24 mmol/L (23-31); Chloride 104 mmol/L (98-107); Glucose 103 mg/dL (80-115); Lipase 16 U/L (8-78); Potassium 4.1 mmol/L (3.5-5.1); Protein, Total 6.8 g/dL (5.8-8.1); Sodium 138 mmol/L (136-145)
--- NOTE | 2020-02-29 11:16 | CT ---
ABDOMEN AND PELVIC CT SCAN WITH IV CONTRAST: Date: 02/29/2020 HISTORY: Right lower quadrant pain, dark stool, feeling weak. History of prior GI bleed. FINDINGS: Lung bases appear clear. There are some positional changes of the liver with a prominent amount of om ental fat and large and small bowel, somewhat interposed between the anterior liver and hemidiaphragm . No focal liver mass. Gallbladder appears unremarkable. Common bile duct is unremarkable. Pancreas, spleen, and adrenal glands are unremarkable. I cannot identify distinct cecum and appearance suggests that of possible prior right hemicolectomy. Colonic diverticulosis without acute diverticulitis. The re are two thin-walled cystic structures immediately adjacent to and contacting the left side of the bladder. One measures 2.8 cm and the other one measures 3.7 cm, possible thin-walled bladder divertic wilian versus other cysts adjacent to the urinary bladder. Borderline wall thickening of the urinary evans dder without pericystic abnormal fat stranding. No renal calculus or acute obstruction. No solid o r cystic renal mass. IMPRESSION: 1. No evidence for significant acute intra-abdominal or pelvic abnormality. 2. Probable small urinary bladder diverticula or small thin-walled cyst adjacent to and contacting t he bladder. 3. Other findings as above. POS: [facility]
[2020-02-29] MEDS ORDERED: Iopamidol-370 76% 500 ML 1 ML ONE (13:00)
== END 2020-02-29 11:29 | disposition home or self-care (01) ==
LOC: ERS 09:16
DX: K57.30 Diverticulosis of large intestine without perforation or abscess without bleeding (principal); I48.91 Unspecified atrial fibrillation; M10.9 Gout, unspecified; I10 Essential (primary) hypertension; F17.220 Nicotine dependence, chewing tobacco, uncomplicated; Z79.82 Long term (current) use of aspirin; Z79.899 Other long term (current) drug therapy
CPT/HCPCS: 74177; 80053; 83605; 83690; 84484; 85025; 85610; 85730; 86850; 86900; 86901; 93005; Q9967

== ENCOUNTER 2020-03-08 19:53 | Inpatient (IN) | payer BC, MEDICARE ==
[2020-03-08] MEDS ORDERED: Enoxaparin Sodium 100 MG/ML SYRINGE ONE ×2 (21:12→23:19)
[2020-03-08] MEDS ORDERED: Enoxaparin Sodium 30 MG/0.3 ML SYRINGE ONE ×3 (21:12→23:21)
[2020-03-08 21:30] LABS: SARS-CoV-2 NAA Rapid Test Not Detected (NotDetected)
[2020-03-08 21:58] LABS: Troponin I 0.106 ng/mL (< 0.028)
[2020-03-09 01:36] LABS: Troponin I 0.096 ng/mL (< 0.028)
--- NOTE | 2020-03-09 02:29 | HP ---
REASON FOR ADMISSION: Shortness of breath. HISTORY OF PRESENT ILLNESS: This is a 69-year-old male patient, who presents to the ER complaining of 24-hour history of shortness of breath that started gradually worsening and was mainly on exertion. He denies chest pain. Denies cough. No fevers. No chills. He was evaluated in outside facility after being referred by his primary care physician, who noticed that his pulse ox was around 90%. His initial evaluation demonstrated an elevated troponin. He was subsequently transferred to our emergency room. A CT of the chest did show bilateral large PE. The patient denies any trauma to his lower extremities. Denies recent travel. He does report some lightheadedness, but no loss of consciousness. PAST MEDICAL HISTORY: 1. High blood pressure. 2. Gout. 3. Colon polyp. 4. Post cataract surgery. 5. Status post prostate surgery. 6. Status post colectomy in 2019. 7. Post recent incisional hernia repair with mesh placement approximately 5 months ago. 8. High cholesterol. 9. Documented atrial fibrillation. 10. Left arm surgery. SOCIAL HISTORY: He drinks every day more than 10 drinks a day. He does not use illegal substance. He does chew tobacco. Does not smoke tobacco. FAMILY HISTORY: Positive for heart disease. ALLERGIES: NO KNOWN TO HAVE ANY DRUG ALLERGY. REVIEW OF SYSTEMS: All systems reviewed, except the above-mentioned shortness of breath, found to be negative. PHYSICAL EXAMINATION: GENERAL: Alert, awake, oriented, does not appear in distress. VITAL SIGNS: His blood pressure is 111/58, heart rate of 85, temperature is 98.8, and saturating 96% on room air. HEENT: Head is nontraumatic and normocephalic. Pupils equal and reactive. Extraocular movements are intact. Nonicteric sclerae. Well injected conjunctivae. Oral mucosa normal. Nasal mucosa normal. NECK: Supple. No adenopathy. No murmur. Thyroid is not palpable. Trachea is midline. No supraclavicular adenopathy. HEART: S1, S2 regular. No murmur. No gallops. No friction rubs. No displacement of PMI. LUNGS: Clear to auscultation bilaterally. No wheezes. No rhonchi. No crackles. ABDOMEN: Bowel sounds are positive. Nontender abdomen. No hepatosplenomegaly. EXTREMITIES: He does have 1+ pitting edema bilateral extremities with evidence of varicose veins. NEUROLOGIC: Cranial nerves II through XII within normal limits. Normal motor function. Normal sensory function. Normal reflexes. LABORATORY DATA: Blood work shows a WBC of 8.4, hemoglobin 13.7, platelets of 182. D-dimer 11.25. Sodium 139, potassium 4.1, bicarb 23, BUN 10, creatinine 0.98, total bilirubin 1.9. Troponin 0.168. BNP 208.7. Urinalysis, positive for nitrites, negative for leukocyte esterase, negative for wbc's. CT of the chest shows extensive PE involving the main pulmonary arteries as well as the lobar and segmental pulmonary arteries of all lung lobes. There is no overt evidence to suggest presence of right heart dysfunction. Small areas of subsegmental volume loss and lingula in the right lower lobe. EKG shows normal sinus rhythm; T-wave inversion in V1, V3, and V4. No ST-segment changes per my read. ASSESSMENT AND PLAN: This is a 69-year-old male patient, presenting with shortness of breath, found to have bilateral pulmonary embolism. Also, he has abnormal troponin, most likely due to his pulmonary embolism. The patient will be admitted to telemetry. We will continue cycling his cardiac enzymes, we will ask Dr. Cortez of Cardiology to see him, we will do an echocardiogram and a Doppler of lower extremity in a.m., and he will be started on Lovenox. He did receive his first dose in the ER. We will consult Hematology for hypercoagulable workup. Job ID: [id number]
[2020-03-09 03:20] LABS: Troponin I 0.086 ng/mL (< 0.028)
[2020-03-09 03:51] LABS: Band 4 % (5-11); Hypochromia SLIGHT = 6-15 cells (100X) (0-5/hpf); Lymphocytes 12 % (21-51); MDiff Complete? YES; Mean Corpuscular HGB CONC 33.6 g/dL (32.0-36.0); Mean Corpuscular Hemoglobin 33.4 pg (27.0-31.0); Mean Corpuscular Volume 99.4 fL (78.0-98.0); Mean Platelet Volume 7.5 fL (7.4-10.4); Monocytes 13 % (0-10); Neutrophil 69 % (42-75); Platelet Count 175 thou/uL (130-400); Platelet Morphology Comment Appears Adequate; Reactive Lymphocytes 2 % (0-10); White Blood Cell (WBC) Count 7.4 thou/uL (4.8-10.8)
[2020-03-09] MEDS ORDERED: Enoxaparin Sodium 120 MG/0.8 ML SYRINGE SC SCH (07:00)
--- NOTE | 2020-03-09 12:55 | ULT ---
BILATERAL LOWER EXTREMITY VENOUS ULTRASOUND WITH DOPPLER: HISTORY: Swelling. PE. COMPARISON: None. TECHNIQUE: Sexton scale, color flow, Doppler imaging, and spectral waveform analysis of the left and right lower e xtremity venous system. FINDINGS: There is only partial compressibility involving the proximal right femoral vein. With regard to the remainder of the right lower extremity, there is compressibility, presence of flow, and augmentation of the common femoral vein, mid and distal femoral vein, popliteal vein. There is flow in the greate r saphenous vein, profunda femoral vein, and posterior tibial vein. With regard to the left lower extremity, there is compressibility, presence of flow and augmentation in the common femoral vein, femoral vein, and popliteal vein. There is flow in the greater saphenous vein, profunda vein, and posterior tibial vein. IMPRESSION: Partial compressibility involving the proximal femoral vein. The possibility of a nonocclusive throm bus cannot be excluded. POS: [facility]
[2020-03-09 16:25] VITALS: BMI 33.5
--- NOTE | 2020-03-09 17:28 | CON ---
DATE OF CONSULTATION: REASON FOR CONSULTATION: Pulmonary embolism. HISTORY OF PRESENT ILLNESS: A 69-year-old male presenting to the ER with worsening shortness of breath and dyspnea on exertion. The patient said this started approximately 24 hours prior to admission and he had went to see his PCP who noticed his pulse ox was around 90% and sent him for evaluation. He had a CT angio of the chest on March 08 that showed extensive pulmonary embolism involving the main pulmonary arteries as well as lobar and segmental pulmonary arteries of all lung lobes. He also had a venogram of the lower extremities that showed partial compressibility involving the proximal right femoral vein suggesting possible nonocclusive thrombus. Of note, he had a CT abdomen and pelvis with contrast on February 28 that was relatively unremarkable. The patient denies any chest pain, fevers, dizziness, or pain in the leg. He has since been started on Lovenox. His labs did show mildly elevated troponin with a max of 0.106. The patient denies any recent surgery, but did have a colonoscopy on March 03, 2020. He has colon polyps and he also says he had prostate cancer removed approximately 7 to [address] Valle in [place]. No other known cancer. He does not smoke, but does dip tobacco and also drinks between 6 and 12 beers per day. No family history of blood clots. He denies any recent long distance travel in the last few months. He has been having blood in the stool, which could potentially be due to large tubular adenomas, but says Dr. Lambert and Dr. Dejesus do not think this is the case. He also had an upper endoscopy that did not show signs of bleeding. REVIEW OF SYSTEMS: Ten-point review of systems negative except as per HPI. PAST MEDICAL HISTORY: High blood pressure, colon polyps, prostate cancer, hyperlipidemia. PAST SURGICAL HISTORY: Prostate surgery, colectomy, incisional hernia repair, left arm surgery. SOCIAL HISTORY: Alcohol abuse. Chews tobacco. No smoking. FAMILY HISTORY: Heart disease. No cancer or blood clots. ALLERGIES: NO KNOWN DRUG ALLERGIES. CURRENT MEDICATIONS: Reviewed. PHYSICAL EXAMINATION: VITAL SIGNS: Temperature 98.6, pulse 84, respirations 18, saturating 93% on room air, blood pressure 137/70. GENERAL APPEARANCE: The patient is sitting up in bed, in no acute distress. HEENT: Normocephalic, atraumatic. RESPIRATIONS: Clear to auscultation bilaterally. CARDIOVASCULAR: S1 and S2. Regular rhythm and rate. ABDOMEN: Soft, nontender. EXTREMITIES: No edema. NEUROLOGIC: Cranial nerves 2 through 12 are grossly intact. PSYCHIATRIC: Awake, alert, and oriented x3 with appropriate affect. LABORATORY DATA: White blood cell 7.4, hemoglobin 12.0, platelets 175. Troponin 0.106, down trended to 0.086. COVID negative. Influenza A and B negative as well. ASSESSMENT AND PLAN: A 69-year-old male presenting with deep vein thrombosis and large bilateral pulmonary embolism, currently on Lovenox. Recommend continuing Lovenox while in the hospital and convert to Eliquis or Xarelto upon discharge. He chews tobacco but does not smoke and has no recent travel, surgery or trauma. So, blood clot does appear unprovoked. Given substantial burden of pulmonary embolism, we will go ahead and send hypercoagulable panel, though it is typically negative and not helpful. He should continue anticoagulation for at least 6 months and can follow up in clinic once hypercoagulable panel returns, which typically can take up to two weeks. We will follow hospital course with you peripherally. Please call with questions. Job ID: [id number] [id number]
--- NOTE | 2020-03-09 18:52 | CON ---
DATE OF CONSULTATION: 03/09/2020 REASON FOR CONSULTATION: Increased troponin in the setting of massive pulmonary embolism. HISTORY OF PRESENT ILLNESS: Mr. Soler is a 69-year-old gentleman with sudden onset of difficulty breathing, found to have massive bilateral pulmonary emboli. He has been started on enoxaparin and is feeling better. No chest pain or pressure. PAST MEDICAL HISTORY: 1. History of supraventricular tachycardia. 2. Hypertension. 3. Hypercholesterolemia. PAST SURGICAL HISTORY: No previous cardiac procedures. Did have negative stress test in the past. REVIEW OF SYSTEMS: CONSTITUTIONAL: No significant weight gain or loss. VISION: No changes. HEARING: No changes. PULMONARY: Positive for shortness of breath. CARDIAC: No chest pain. GASTROINTESTINAL: No nausea, vomiting, or diarrhea. PHYSICAL EXAMINATION: GENERAL: This is a pleasant gentleman. He is still having some difficulty breathing, but it has improved. VITAL SIGNS: Blood pressure 137/70, pulse 80 and it's rate is regular. LUNGS: Clear. I hear no wheezing. CARDIAC: Normal S1, normal S2. ABDOMEN: Soft, nontender. EXTREMITIES: Warm, dry. No clubbing or cyanosis. There is no edema. PERTINENT LABORATORY DATA: Troponin 0.106. EKG, sinus rhythm with premature atrial contraction. No acute changes. ASSESSMENT: 1. Massive bilateral pulmonary emboli. 2. History of supraventricular tachycardia. 3. History of hypertension. 4. Obesity. PLAN: Agree with current medical regimen. No other recommendations other than echocardiogram to evaluate right ventricular function. Job ID: [id number]
--- NOTE | 2020-03-09 19:36 | PDOC.HOSPP ---
- Subjective Encounter Date: 03/09/20 Encounter Time: 12:30 Subjective: Patient seen in follow-up for bilateral pulmonary embolism. He denies chest pain or palpitations. - Objective Vital Signs & Weight: Vital Signs (12 hours) Temp Pulse Resp BP Pulse Ox 03/09/20 12:00 93 L 03/09/20 11:45 98.6 F 84 18 137/70 93 L Weight Weight 254 lb Result Diagrams: 03/09/20 02:49 Additional Labs: I reviewed patient's labs and MAR EKG Reviewed by me: Yes (Normal sinus rhythm on telemetry) Hospitalist ROS - Review of Systems Respiratory: denies: cough, shortness of breath, SOB with excertion, pleuritic pain, wheezing Cardiovascular: denies: chest pain, palpitations, orthopnea, paroxysmal noc. dyspnea, edema, light headedness - Exam General - other findings: Obese ENT: normocephalic atraumatic Neck: supple Heart: RRR Respiratory: CTAB Gastrointestinal: soft, non-tender Skin: no rashes Psychiatric: normal affect, normal behavior Hosp A/P (1) Pulmonary embolism Code(s): I26.99 - OTHER PULMONARY EMBOLISM WITHOUT ACUTE COR PULMONALE Status: Acute (2) Hypertension Code(s): I10 - ESSENTIAL (PRIMARY) HYPERTENSION Status: Chronic (3) Dyslipidemia Code(s): E78.5 - HYPERLIPIDEMIA, UNSPECIFIED Status: Chronic (4) Obesity (BMI 30.0-34.9) Code(s): E66.9 - OBESITY, UNSPECIFIED Status: Chronic - Plan Continue therapeutic Lovenox, transition to oral anticoagulants at the time of discharge. Hypertension controlled and stable. Continue statin. Appreciate cardiology and oncology services input. Await 2D echocardiogram.
[2020-03-09] MEDS ORDERED: Sodium Chloride 0.9% 10 ML ONE (21:28)
[2020-03-09] MEDS: Enoxaparin Sodium 80 MG/0.8 ML SYRINGE SC SCH (21:54)
[2020-03-10 04:59] LABS: PTT 47.3 sec (22.9-36.1)
[2020-03-10 05:00] LABS: INR-International Normal Ratio 1.1; Prothrombin Time 14.1 sec (12.0-14.7)
[2020-03-10 05:06] LABS: Eosinophils 1 % (0-10); Hemoglobin 12.3 g/dL (14.0-18.0); Lymphocytes 24 % (21-51); MDiff Complete? YES; Mean Corpuscular HGB CONC 33.8 g/dL (32.0-36.0); Mean Corpuscular Hemoglobin 33.1 pg (27.0-31.0); Mean Platelet Volume 7.6 fL (7.4-10.4); Monocytes 12 % (0-10); Neutrophil 63 % (42-75); Platelet Count 207 thou/uL (130-400); Platelet Morphology Comment Appears Adequate; White Blood Cell (WBC) Count 7.1 thou/uL (4.8-10.8)
[2020-03-10 05:07] LABS: D-Dimer Test 5.19 *mcg/mL (0.27-0.43)
[2020-03-10 05:39] LABS: Anion Gap 14 mmol/L (10-20); BUN (Urea Nitrogen) 9 mg/dL (8.4-25.7); Calc. Creatinine Clearance 125 mL/min (70-130); Calcium 8.3 mg/dL (7.8-10.44); Carbon Dioxide 23 mmol/L (23-31); Chloride 102 mmol/L (98-107); Glucose 111 mg/dL (80-115); Potassium 3.8 mmol/L (3.5-5.1); Sodium 135 mmol/L (136-145)
[2020-03-10] MEDS: Lisinopril 20 MG TAB PO SCH (08:19)
[2020-03-10] MEDS: Atorvastatin Calcium 10 MG TAB PO SCH (08:19)
[2020-03-10] MEDS: Allopurinol 300 MG TAB PO SCH (08:19)
[2020-03-10] MEDS: Enoxaparin Sodium 80 MG/0.8 ML SYRINGE SC SCH (08:19)
[2020-03-10] MEDS ORDERED: Acetaminophen 325 MG TAB PO PRN (14:35)
[2020-03-10 15:03] LABS: HEX PHOS LA Tube 1 53.8 SEC; HEX PHOS LA Tube 2 41.4 SEC; Hexagonal Phospholipid Neut 12.4 SEC (0-8.0)
--- NOTE | 2020-03-10 18:47 | PDOC.HOSPP ---
- Subjective Encounter Date: 03/10/20 Encounter Time: 10:00 Subjective: Patient seen for follow-up regarding pulmonary embolism. Denies chest pain or shortness of breath. - Objective Vital Signs & Weight: Vital Signs (12 hours) Temp Pulse Resp BP BP Pulse Ox 03/10/20 16:25 97.3 F L 84 20 106/58 L 95 03/10/20 12:00 98.3 F 82 18 121/64 97 03/10/20 08:15 98.6 F 96 18 116/59 L 95 03/10/20 08:00 95 Weight Weight 244 lb I&O: 03/09/20 03/10/20 03/11/20 06:59 06:59 06:59 Intake Total 550 720 Balance 550 720 Result Diagrams: 03/10/20 04:09 03/10/20 04:08 Additional Labs: Labs and MAR reviewed by me EKG Reviewed by me: Yes (Telemetry shows normal sinus rhythm) Hospitalist ROS - Review of Systems Respiratory: denies: cough, shortness of breath, SOB with excertion, pleuritic pain, wheezing Cardiovascular: denies: chest pain, palpitations, orthopnea, paroxysmal noc. dyspnea, edema, light headedness - Medication Medications: Active Medications Generic Name Dose Route Start Last Admin Trade Name Freq PRN Reason Stop Dose Admin Allopurinol 300 mg 03/10/20 09:00 03/10/20 08:19 Allopurinol 300 Mg Tab PO 300 mg QAM ELLEN Administration Atorvastatin Calcium 10 mg 03/10/20 09:00 03/10/20 08:19 Atorvastatin Calcium 10 Mg Tab PO 10 mg QAM ELLEN Administration Diltiazem HCl 240 mg 03/10/20 09:00 03/10/20 08:19 Diltiazem Hcl Cd 240 Mg Capsule PO 240 mg QAM ELLEN Administration Lisinopril 20 mg 03/10/20 09:00 03/10/20 08:19 Lisinopril 20 Mg Tab PO 20 mg QAM ELLEN Administration - Exam General Appearance: awake alert Eye: anicteric sclera ENT: normocephalic atraumatic Neck: supple Heart: RRR, no rubs Respiratory: CTAB Gastrointestinal: soft, non-tender Skin: no rashes Psychiatric: normal affect, normal behavior Hosp A/P (1) Pulmonary embolism Code(s): I26.99 - OTHER PULMONARY EMBOLISM WITHOUT ACUTE COR PULMONALE Status: Acute (2) Hypertension Code(s): I10 - ESSENTIAL (PRIMARY) HYPERTENSION Status: Chronic (3) Dyslipidemia Code(s): E78.5 - HYPERLIPIDEMIA, UNSPECIFIED Status: Chronic (4) Obesity (BMI 30.0-34.9) Code(s): E66.9 - OBESITY, UNSPECIFIED Status: Chronic - Plan Discussed with patient regarding oral anticoagulation. Start apixaban, discontinue Lovenox. Hemoglobin is stable. Hypertension controlled and stable. Continue statin. 2D echocardiogram result pending Likely home 24 to 48 hours.
[2020-03-10] MEDS: Apixaban 5 MG TAB PO SCH (21:02)
[2020-03-11 05:15] LABS: Anion Gap 12 mmol/L (10-20); BUN (Urea Nitrogen) 15 mg/dL (8.4-25.7); Calc. Creatinine Clearance 117 mL/min (70-130); Carbon Dioxide 26 mmol/L (23-31); Chloride 105 mmol/L (98-107); Glucose 105 mg/dL (80-115); Sodium 139 mmol/L (136-145)
[2020-03-11 06:02] LABS: Band 8 % (5-11); Eosinophils 2 % (0-10); Hemoglobin 11.5 g/dL (14.0-18.0); Lymphocytes 31 % (21-51); MDiff Complete? YES; Mean Corpuscular HGB CONC 34.2 g/dL (32.0-36.0); Mean Corpuscular Hemoglobin 34.2 pg (27.0-31.0); Mean Platelet Volume 7.2 fL (7.4-10.4); Monocytes 15 % (0-10); Neutrophil 44 % (42-75); Platelet Count 206 thou/uL (130-400); RBC Distribution Width 12.1 % (11.5-14.5); Red Blood Cell (RBC) Count 3.35 mill/uL (4.70-6.10); White Blood Cell (WBC) Count 4.9 thou/uL (4.8-10.8)
[2020-03-11 07:43] VITALS: BP 125/71; TEMP 98.2
--- NOTE | 2020-03-11 07:51 | PRG ---
DATE OF SERVICE: SUBJECTIVE: Mr. Soler is breathing better. He says he is not back to normal but is markedly improved. No chest pain. OBJECTIVE: VITAL SIGNS: Blood pressure is 121/69, pulse 76 and regular. LUNGS: Clear. CARDIAC: Normal S1, normal S2. ABDOMEN: Soft, nontender. EXTREMITIES: Mild peripheral edema. ASSESSMENT: 1. Status post bilateral pulmonary emboli. 2. Echocardiogram shows normal left ventricular function with some dilatation of the right ventricle as would be expected. 3. No recurrent atrial arrhythmias. He has had some supraventricular tachycardia in the past. PLAN: Go home on Eliquis per usual regimen. Other medicines unchanged. He will be asked to come and see me in 6 or 8 weeks. Job ID: [id number]
[2020-03-11] MEDS: Atorvastatin Calcium 10 MG TAB PO SCH (08:47)
[2020-03-11] MEDS: Allopurinol 300 MG TAB PO SCH (08:47)
[2020-03-11] MEDS: Lisinopril 20 MG TAB PO SCH (08:47)
[2020-03-11] MEDS: Apixaban 5 MG TAB PO SCH (08:47)
[2020-03-11 10:36] LABS: Protein C Activity 62 % (78-152)
--- NOTE | 2020-03-11 10:52 | PDOC.DS.DS ---
Provider - Provider Date of Admission: 03/08/20 20:59 Date of Discharge: 03/11/20 Admitting Provider: Connie Marie MD Consultations: Cardiology (Dr. Cortez), Oncology (Dr. Baez) Primary Care Physician: Abran Boone MD Course - Hospital Course Hospital Course: Discharge diagnosis: 1. Bilateral pulmonary embolism 2. Hyponatremia 3. COVID-19 test negative 4. Influenza test negative Hospital course: Patient is a pleasant 69-year-old gentleman who was admitted to the hospital on March 08, 2020 for bilateral pulmonary embolism. He was started on Lovenox, subsequently transitioned to apixaban. He was seen by oncology service for hypercoagulable work-up. He was also seen by cardiology service for indeterm inate troponin, likely secondary to pulmonary embolism. 2D echocardiogram showed normal left ventricular size, left ventricular ejection fraction of 60 to 65%, moderately enlarged right ventricular cavity, no evidence of mitral regurgitation, no evidence of mitral valve stenosis and mild tricuspid regurgitation. Many thanks for allowing me to participate in your patient's care. Please feel free to contact me with any questions or concerns. Discharge destination: Home Total amount of time spent coordinating this discharge: 20 minutes - Labs Lab Results: 03/11/20 04:04 03/11/20 04:04 Abnormal Lab Results - Last 48 hrs 03/10/20 04:08: Sodium 135 L 03/10/20 04:09: RBC 3.70 L, Hgb 12.3 L, Hct 36.3 L, MCH 33.1 H, Monocytes % (Manual) 12 H 03/10/20 04:09: APTT 47.3 H, D-Dimer 5.19 H, Hexagon Phase Neutraliz 12.4 H, Protein C Chromogenic 62 L, Func Antithrombin III 70.0 L, Factor VIII Activity 240.0 H 03/11/20 04:04: RBC 3.35 L, Hgb 11.5 L, Hct 33.5 L, MCV 100.0 H, MCH 34.2 H, MPV 7.2 L, Monocytes % (Manual) 15 H - Physical Exam Vitals: Vital Signs (12 hours) Temp Pulse Resp BP Pulse Ox 03/11/20 07:41 98.2 F 86 19 125/71 95 03/11/20 04:00 97.8 F 77 18 121/69 95 Weight Weight 245 lb Physical Exam: The patient was seen and examined on the day of discharge. Patient denies chest pain or shortness of breath. Vital signs are stable. S1 and S2 are heard. Lungs are clear to auscultation bilaterally. Problem - Problem (1) Pulmonary embolism Code(s): I26.99 - OTHER PULMONARY EMBOLISM WITHOUT ACUTE COR PULMONALE Status: Acute (2) Hypertension Code(s): I10 - ESSENTIAL (PRIMARY) HYPERTENSION Status: Chronic (3) Dyslipidemia Code(s): E78.5 - HYPERLIPIDEMIA, UNSPECIFIED Status: Chronic (4) Obesity (BMI 30.0-34.9) Code(s): E66.9 - OBESITY, UNSPECIFIED Status: Chronic Plan - Discharge Medications Home Medications: Medication Instructions Recorded Confirmed Type Allopurinol 300 mg PO QAM 09/12/17 03/09/20 History Diltiazem HCl [Cartia XT] 240 mg PO QAM 09/12/17 03/09/20 History Lisinopril 20 mg PO QAM 09/12/17 03/09/20 History Pravastatin Sodium 40 mg PO QAM 09/12/17 03/09/20 History Apixaban [Eliquis] 10 mg PO BID tab 03/11/20 Rx Allergies: No Known Allergies Allergy (Verified 09/17/19 12:40) - Discharge Instructions Discharge Instructions:: STOP ASPIRIN WHILE ON APIXABAN - Follow up Plan Referrals: Colten Baez MD [Active] - 2-3 Weeks (Please call and schedule a follow up appointment to discuss results of blood testing in 2 weeks. ) Abran Boone MD [Primary Care Provider] - 3 Days (Call office to schedule a hospital follow up appointment within 7 days) Walker Cortez MD [Active] - (Call office to schedule a follow up appointment in 6-8 weeks.) Disposition: HOME Quality - Care Measures CORE MEASURES:: N/A
== END 2020-03-11 10:47 | disposition home or self-care (01) | DRG 176 ==
LOC: ERS 19:53 → ERHOLD 20:59 → 2NO 03-09 11:53
PROVIDERS: ADMIT Internal Medicine; ATTEND Internal Medicine
DX: I26.99 Other pulmonary embolism without acute cor pulmonale (principal); E87.1 Hypo-osmolality and hyponatremia; I47.1 Supraventricular tachycardia; Z20.828 Contact with and (suspected) exposure to other viral communicable diseases; I10 Essential (primary) hypertension; E78.5 Hyperlipidemia, unspecified; E66.9 Obesity, unspecified; M10.9 Gout, unspecified; E78.00 Pure hypercholesterolemia, unspecified; I48.91 Unspecified atrial fibrillation; F17.220 Nicotine dependence, chewing tobacco, uncomplicated; Z79.899 Other long term (current) drug therapy; Z79.82 Long term (current) use of aspirin; Z90.49 Acquired absence of other specified parts of digestive tract; Z68.32 Body mass index [BMI] 32.0-32.9, adult
CPT/HCPCS: 0240U; 36415; 80048; 81240; 81241; 83090; 84484; 85025; 85240; 85300; 85303; 85305; 85307; 85379; 85598; 85610; 85730; 86147; 93306; 93970; 99285; J1650

== ENCOUNTER 2022-03-15 11:00 | Outpatient (CLI) | payer MEDICARE | END 2022-03-15 11:01 | disposition home or self-care (01) | LOC: PET 11:00 | PROVIDERS: ATTEND Internal Medicine Critical Care Medicine | DX: R59.0 Localized enlarged lymph nodes (principal) | CPT/HCPCS: 78815; A9552 ==

== ENCOUNTER 2022-09-13 09:53 | Outpatient (CLI) | payer MEDICARE | END 2022-09-13 09:54 | disposition home or self-care (01) | LOC: BICCT 09:53 | PROVIDERS: ATTEND Internal Medicine Critical Care Medicine | DX: R59.0 Localized enlarged lymph nodes (principal); J98.59 Other diseases of mediastinum, not elsewhere classified | CPT/HCPCS: 71260 ==

== ENCOUNTER 2023-02-08 08:07 | Outpatient (CLI) | payer MEDICARE | END 2023-02-08 08:08 | disposition home or self-care (01) | LOC: RAD 08:07 | PROVIDERS: ATTEND Internal Medicine Critical Care Medicine | DX: R06.00 Dyspnea, unspecified (principal); R91.8 Other nonspecific abnormal finding of lung field | CPT/HCPCS: 71046 ==

== ENCOUNTER 2023-09-25 11:44 | Outpatient (CLI) | payer MEDICARE | END 2023-09-25 11:45 | disposition home or self-care (01) | LOC: SCSMRI 11:44 | PROVIDERS: ATTEND Orthopaedic Surgery | DX: M75.121 Complete rotator cuff tear or rupture of right shoulder, not specified as traumatic (principal); M19.011 Primary osteoarthritis, right shoulder ==

== ENCOUNTER 2023-12-19 10:35 | Outpatient (CLI) | payer MEDICARE ==
[2023-12-19 12:05] LABS: #Basophils 0.03 10x3/uL (0.0-0.2); %Basophils 0.6 % (0.0-1.0); %Eosinophils 1.1 % (0.0-10.0); %Neutrophils 58.9 % (42.0-75.0); Hematocrit 42.5 % (42.0-52.0); Hemoglobin 13.8 g/dL (14.0-18.0); Mean Corpuscular HGB CONC 32.5 g/dL (32.0-36.0); Mean Corpuscular Hemoglobin 33.2 pg (27.0-31.0); Mean Corpuscular Volume 102.2 fL (78.0-98.0); Mean Platelet Volume 9.4 fL (7.4-10.4); Platelet Count 146 10x3/uL (130-400); RBC Distribution Width 13.8 % (11.5-14.5); Red Blood Cell (RBC) Count 4.16 mill/uL (4.70-6.10)
[2023-12-19 12:18] LABS: INR-International Normal Ratio 1.2; Prothrombin Time 14.7 sec (12.0-14.7)
[2023-12-19 12:21] LABS: Anion Gap 8 mmol/L (10-20); BUN (Urea Nitrogen) 15 mg/dL (8.4-25.7); Calc. Creatinine Clearance 0 mL/min (70-130); Calcium 9.6 mg/dL (7.8-10.44); Carbon Dioxide 30 mmol/L (23-31); Chloride 102 mmol/L (98-107); Estimated GFR 87; Glucose 108 mg/dL (83-110); Potassium 4.2 mmol/L (3.5-5.1); Sodium 136 mmol/L (136-145)
== END 2023-12-19 10:36 | disposition home or self-care (01) ==
LOC: LABBT 10:35
PROVIDERS: ATTEND Orthopaedic Surgery
DX: Z01.812 Encounter for preprocedural laboratory examination (principal); M75.121 Complete rotator cuff tear or rupture of right shoulder, not specified as traumatic
CPT/HCPCS: 80048; 85025; 85610; 87081